=== PATIENT | female | born 1935 | race Caucasian/White ===

== ENCOUNTER → 2021-02-07 14:06 | Outpatient (CLI) | payer OTHER, MEDICAID, SELFPAY ==
--- NOTE | 2021-02-07 14:15 | DI.CT.S_ITS ---
PROCEDURE: CT LUMBAR SPINE WO CON INDICATIONS: Spinal stenosis, lumbar region with neurogenic claudication TECHNIQUE: Noncontrast 3 mm thick sections acquired from the T12 level to the sacrum. Sagittal and coronal reformats were constructed. For radiation dose reduction, the following was used: automated exposure control. COMPARISON: None. FINDINGS: Image quality: Excellent. Bones: There is normal bony alignment. No acute vertebral body compression fractures. No suspicious lytic or blastic bony lesions. No pars defects. Sclerotic degenerative endplate changes noted at L1-2. Dense atherosclerotic vascular calcification noted in the abdominal aorta without aneurysm. T12-L1: Disc space narrowing and circumferential disc bulge results in moderate central stenosis. Moderate right and mild left foraminal stenosis noted. L1-L2: Disc space narrowing, degenerative endplate changes and vacuum disc phenomena noted associated with circumferential disc bulge and hypertrophic facet joints. Moderate central stenosis with bilateral moderate foraminal stenosis, greater on the right. L2-L3: Mild disc space narrowing and circumferential disc bulge is present with hypertrophic facet joints resulting in moderate central stenosis mild bilateral foraminal stenosis noted. L3-L4: Mild disc space narrowing with large circumferential disc bulge, ligamentum flavum laxity and hypertrophic facet joints all contribute to severe central stenosis. Moderate right and severe left foraminal stenosis present. L4-L5: Severe disc space narrowing and circumferential disc bulge combines with hypertrophic facet joints and ligamentum flavum laxity to result in severe central stenosis. There is severe bilateral foraminal stenosis present as well. L5-S1: Moderate disc space narrowing, vacuum disc phenomena and circumferential disc bulge present with hypertrophic facet joints. Moderate central stenosis and severe bilateral foraminal stenosis noted. 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 on 02/07/2021 at 16:16
== END ==
PROVIDERS: PCP Family Medicine; Referring Provider Orthopaedic Surgery Orthopaedic Surgery of the Spine; Visit Provider Orthopaedic Surgery Orthopaedic Surgery of the Spine
DX: M48.062 Spinal stenosis, lumbar region with neurogenic claudication (principal); M48.07 Spinal stenosis, lumbosacral region; M51.36 Other intervertebral disc degeneration, lumbar region; M47.816 Spondylosis without myelopathy or radiculopathy, lumbar region; M47.817 Spondylosis without myelopathy or radiculopathy, lumbosacral region
CPT/HCPCS: 72131

== ENCOUNTER 2021-11-05 11:12 | Inpatient (IN) | payer OTHER, MEDICAID, SELFPAY ==
[2021-10-28 13:32] VITALS: BMI 21.3
[2021-11-04] VITALS (22 sets, daily range): BP systolic 120–177; BP diastolic 50–76; PULSE 69–99; RESP 12–18; TEMP 36.4–37.2; O2SAT 93–99; BMI 21.3
[2021-11-04] MEDS: LACTATED RINGERS 1,000 ML 42 ML IV ×2 (07:24→09:32)
[2021-11-04 07:30] LABS: COVID19 -Nasal RAPID Negative (Negative)
--- NOTE | 2021-11-04 07:48 | PM.PREOP ---
Pre-operative Note COVID-19 COVID-19 status: Negative Result date/Date tested (Pos, Neg/Pending): 11/04/21 Criteria for continued procedure: Expected advancement of disease process, Possibility delay results in more complex future surgery or treatment, Increased loss of function, Continuing or worsening of significant or severe pain, Deterioration of the patient's condition or overall health and Delay expected to result in less-positive ultimate med/surg outcome Interval Note History & Physical reviewed/Exam performed by Physician: Yes Changes to H&P: No
[2021-11-04] MEDS: CLINDAMYCIN 600 MG/50 ML PIGGYBACK 50 MG IV ×2 (08:30→16:36)
[2021-11-04] MEDS: ACETAMINOPHEN IV 1,000 MG/100 ML VIAL 400 MG IV (09:16)
[2021-11-04] MEDS: BUPIVACAINE LIPOSOME 266 MG/20 ML VIAL INJ (09:31)
[2021-11-04] MEDS: BUPIVACAINE 0.5% (PF) 30 ML, EPINEPHrine 0.15 MG INJ (09:31)
--- NOTE | 2021-11-04 09:44 | SUR.OPER ---
Prone on spine table, head in foam head support, padded chest and pelvic supports, gel pad at knees, lower legs supported by pillows; nipples, genitalia and toes free of pressure, arms secured on foam padded arm boards at <90 degrees abduction. Tape over blanket at thigh secured to table. Directed and approved by surgical attending Carine, neck alignment approved by Anesthsia attending Junie
--- NOTE | 2021-11-04 12:23 | DI.RAD.S_ITS ---
PROCEDURE: XR LUMBAR SPINE 2-3V INDICATIONS: L3-4, L4-5 TLIF TECHNIQUE: 2 spot fluoroscopic intraoperative images of the lumbar spine. COMPARISON: [facility], CR, XR LUMBAR SPINE 2 OR 3 VIEWS, 12/26/2020, 14:44. FINDINGS: Intraoperative images demonstrate posterior fixation with hardware extending from L3 through L5 with interbody rods and pedicle screws as well as disc spacers. Aortic atherosclerotic calcifications are present. IMPRESSION: Status post posterior fusion from L3 through L5. Dictated by: Avinash Morin M.D. on 11/04/2021 at 12:59 Approved by: Avinash Morin M.D. on 11/04/2021 at 13:01
--- NOTE | 2021-11-04 12:24 | P.OP_ITS ---
Operative Date/Time/Diagnoses Date of procedure: 11/04/21 Time of procedure: 07:45 Pre-op diagnosis: 1. Lumbar scoliosis 2. Lumbar spinal stenosis with neurogenic claudication Post-op diagnosis: same Procedure & Clinicians Procedure: 1. L3-4, L4-5 Postero-lateral and posterior interbody fusion 2. L3-4, L4-5 interbody cage placement. 3. L3-4, L4-5 decompressive laminectomy with bilateral facetecomies 4. L3-4, L4-5 Posterior segmental instrumentation 5. Broadway of bone marrow from iliac crest 6. Utilization of microsurgical technique and operating microscope 7. Utilization of robotic assisted navigation Same procedure as scheduled: Yes Indications: Patient has been having chronic back pain and worsening lumbar radiculopathy and symptoms of neurogenic claudication. Patient failed multiple conservative management with worsening pain weakness and numbness in her lower extremity. Patient has been having difficulty performing activity of daily living. After discussing risks benefits of treatment options, patient elected proceed with surgery. Surgeon: Shiela Hawk Coding Advisor: Mary White Click Yes if Unassisted: No Anesthesia Type: General Operative Notes Closure Type: primary Specimen(s): none sent Prosthetic devices, grafts, tissues, transplants, or devices: Globus CREO MIS screws, Rise cages Applied: catheter Estimated Blood Loss (mL): 75 Blood products transfused: none Procedure in detail: Patient was seen in the preoperative area. Risks and benefits of the surgery was discussed with the patient. Informed consent was obtained from the patient and placed in the chart. Surgical site was marked. Patient was taken to the operative room. General anesthesia was administered. Prophylactic antibiotic was given to the patient less than 30 min before the incision was made. Patient was placed into a prone position on the Joaquín table. Patient's back was then prepped and draped in the sterile fashion. Time-out was performed at this time. After patient was prepped and draped, patient's PSIS was palpated and marked bilaterally. Small 1 cm incision was made over the PSIS for placement of the reference probes. Two trocar was placed into the PSIS 1 on each side. The reference probe was attached to the trocar of the reference apparatus. At this time the C-arm imaging was used to confirm AP and lateral of L3, L4-L5 vertebrae and merged the C-arm imaging using the [email or web address] robotic navigation system with the CT of the lumbar spine. After successful merging was completed and confirmed, skin marker was used to sam out the skin incision using the CHARGED.fm robotic arm. Bilateral incision was made at this time. Pre templated trajectory was used and guided using the CHARGED[employer]fm robotic navigation system for bilateral L3 L4, L5 pedicle screw placement. This was done by using the robotic arm to guide the high-speed bur to make a cortical entry point. Next a drill was placed also using the robotic arm and guided using the navigation system drilling partially through bilateral L3, L4, L5 pedicles. Next L3, L4, L5 pedicle screws it was pre templated and measured was placed onto the power shuttle bus driver and inserted into the pedicles bilaterally. After all 6 screws were placed C-arm imaging was taken of both AP and lateral to confirm the placement. Excellent placement of the screws were confirmed and a matched precisely with the pre planned screw placement using the navigation system. MARs retractor was inserted using [employer] guidence. Globus MARS retractors was placed inside the incision and docked onto the L3, L4 lamina. Using microsurgical technique and operating microscope, a L3, L4 laminectomy and L3-4, L4-5 facetectomy was performed using a Kerrison rongeur. Patient was found have severe lateral recess and neural foramen stenosis which was fully decompressed after the laminectomy facetectomy. More than 75% of the facets were removed during the process of decompression rendering L3-4, L4-5 level grossly unstable and required a fusion procedure at the same time. The disc space at L3-4, L4-5 was identified, and a total diskectomy was performed at L3- 4, L4-5 level. The endplates were decorticated using a rasp and shaver. The total diskectomy and decortication was performed at L3-4, L4-5 level in order to to accomplish a L3-4, L4-5 fusion. The local bone from the laminectomy and facetectomy was saved for local bone grafting. After the total diskectomy and decortication was completed, Trifecta bone graft material was combined with local bone that was harvested earlier. During the process of laminectomy, there was a small pinhole sized dural defect that was encountered. DuraGen and Tisseel was used to patch the dural defect after the cage was placed at the L3-4 level. There was no CSF leakage. At this time, a separate skin is incision was made over the iliac crest. A Jamshidi needle was inserted into the iliac crest through a separate skin incision. 5 cc of bone marrow aspiration was obtained through the separate skin incision using a Jamshidi needle from the iliac crest. The bone marrow aspiration was combined with local bone and the Trifecta bone grafting material. The bone grafting material was placed into the L3-4, L4-5 interbody space along with expandable cages. One cage each was inserted into the L3-4 L4-5 interbody space along with bone graft material. The cage was expanded to its maximum height using the torque limiting screwdriver. The disc preparation as well as the cage insertion were also performed under navigation guidance. After the cage was placed, AP and lateral C-arm imaging was taken to confirm placement of the cage and excellent position was confirmed. Globus MARS retractor was inserted and docked onto the L3-4, L4-5 posterolateral gutter on the right side. Using the power drill, posterior-lateral decortication was performed at L3-4, L4-5 level until bleeding cortical bone was identified. The remaining bone grafting material was placed into the L3-4, L4-5 posterior lateral gutter he order to accomplish posterolateral fusion at the L3- 4, L4-5 level. At this time the tulips were attached to the L3, L4-L5 pedicle screw shanks. After measuring the length of the rods, they were inserted into the tulips of the pedicle screws and locked in place using locking caps and torque limiting screwdriver bilaterally. Total 6 caps and 2 titanium rods was used in order to complete the posterior instrumentation construct. After all the hardware was placed, and confirmed with AP and lateral C-arm imaging, the wound was then irrigated with sterile normal saline and packed with Ray-Janusz gauze for 3 min to accomplish hemostasis. After the gauze was removed the deep fascia was closed with #1 Vicryl suture. The subcutaneous layer was closed with 2-0 Vicryl. The skin was closed with skin verona. Patient tolerated the procedure well. There were no complications. Neuro monitoring system was used to monitor patient's neurologic status throughout entire procedure. There was no disturbance of the neural monitoring signals throughout the case. Complications: none Post-operative Condition: stable Disposition: PACU Plan for aftercare: Admit to inpatient hospital
[2021-11-04] MEDS: HYDROMORPHONE 2 MG INJ IV ×2 (13:28→13:42)
[2021-11-04] MEDS: OXYCODONE IR 5 MG TABLET PO ×2 (13:38→16:36)
[2021-11-04] MEDS: HYDROMORPHONE 0.5 MG INJ 0.2 MG IV ×2 (15:33→20:52)
[2021-11-04] MEDS: SODIUM CHLORIDE 0.9% 1,000 ML 100 ML IV (15:35)
[2021-11-04] MEDS: glipiZIDE 5 MG TABLET 10 MG PO (20:57)
[2021-11-04] MEDS: SENNOSIDES 8.6 MG TABLET 17.2 MG PO (20:58)
[2021-11-04] MEDS: ATORVASTATIN 20 MG TABLET 80 MG PO (20:58)
[2021-11-04] MEDS: DOCUSATE 100 MG CAPSULE PO (20:58)
[2021-11-04] MEDS: TRAMADOL 50 MG TABLET PO (21:34)
[2021-11-04] MEDS: ACETAMINOPHEN 325 MG TABLET 650 MG PO (22:27)
[2021-11-04] MEDS: hydrOXYzine pamoate 25 MG CAPSULE PO (22:28)
[2021-11-05 00:11] VITALS: BP 123/90; PULSE 76; RESP 18; TEMP 36.1; O2SAT 95
[2021-11-05] MEDS: SODIUM CHLORIDE 0.9% 1,000 ML 100 ML IV (00:12)
[2021-11-05] MEDS: OXYCODONE IR 5 MG TABLET PO ×5 (02:55→21:38)
[2021-11-05] MEDS: CLINDAMYCIN 600 MG/50 ML PIGGYBACK 50 MG IV (03:42)
[2021-11-05 04:02] VITALS: BP 148/47; PULSE 70; RESP 18; TEMP 36.2; O2SAT 96
[2021-11-05] MEDS: PANTOPRAZOLE DR 20 MG TABLET PO (06:00)
[2021-11-05] MEDS: LEVOTHYROXINE 25 MCG TABLET PO (06:00)
--- NOTE | 2021-11-05 06:32 | PC.NURSE ---
End of shift note. Care of patient [id number]. AAOX4, pleasant, talkative. Uses call light for assist, compliant with laying flat, CMS intact. Improved pain control with Tramodol and oxycodone. Tolerating drinking water and sprite. O2 Sats 95% on RA. Lower back dressing CDI. ABD distended, patient states she has had a distended abd before this admission, bowel meds given. LBM Bladder urinary catheter draining adequate clear yellow urine.
--- NOTE | 2021-11-05 08:09 | P.PN_ITS ---
Subjective Subjective Date Patient Seen: 11/05/21 Time Patient Seen: 07:40 Interval history: Patient is complaining of moderate to severe pain this morning. She is having some dizziness. There was 1 episode of blurred vision this morning when she was reading, this has since resolved. She denies any headaches. She was unable to work with physical therapy yesterday due to small dural tear. She is planning on being discharged to SNF when cleared. Exam Vital Signs (past 8 hours): - 11/05/21 00:11 11/05/21 04:02 Temperature 97.0 F L 97.1 F L Pulse Rate 76 70 Respiratory Rate 18 18 Blood Pressure 123/90 148/47 H Pulse Oximetry 95 96 Oxygen Delivery Method Room Air Oxygen Flow Rate 92 Narrative Exam Narrative: Pleasant 86-year-old female, resting comfortably in bed, no acute distress. Dressing demonstrates a scant area of serosanguineous drainage, no surrounding erythema or induration. Bilateral lower extremity: Motor functions are grossly intact, calves are soft and nontender palpation. She has decreased sensation bilaterally, patient notes this is baseline due to peripheral neuropathy. [facility] Medical History Anxiety Aortic valve regurgitation Breast cancer (1995) CAD (coronary artery disease) Carotid artery disease CKD (chronic kidney disease) COPD (chronic obstructive pulmonary disease) Diabetes Diverticular disease HLD (hyperlipidemia) HTN (hypertension) Osteoarthritis Osteoarthropathy Surgical History History of hysterectomy History of surgery Hx of bilateral cataract extraction Hx of breast surgery (1995) Hx of elbow surgery Hx of lumpectomy Hx of repair of right rotator cuff Hx of tonsillectomy Social History household members: none Smoking Status: Never smoker alcohol intake: never Assessment & Plan Post-op Postoperative Procedures: Procedures Operation Date: 11/04/21 07:45 Actual Procedure Side Surgeon p L3-4, L4-5 TLIF w. posterior instrumentation-Robot Shiela Hawk MD Postoperative day: 1 Postoperative status narrative: Stable status post L3-4, L4-5 TLIF with a small dural tear Postoperative plan narrative: -okay to start setting patient up, standing, walking; PT as tolerated, depending on any headache or dizziness or lighth eadedness -limit bending, lifting, twisting -continue with current multi-modal pain management. Will add Oxy 10 for severe pain -consult Hospitalist for diabetes management, COPD, etc -DC to SNF likely in 1-2 days, when cleared by Physical therapy
[2021-11-05 08:10] VITALS: BP 144/44; PULSE 79; RESP 18; TEMP 36.5; O2SAT 99
--- NOTE | 2021-11-05 09:22 | CM.DANOTE ---
Addendum entered by Ellie Workman R.N. 11/05/21 11:02: Spoke to Nathaly at [facility], she is going to review. She does have beds available. Let her know that patient is [employer], and P.T. is pending. Original Note: DCP: Case received, EMR reviewed and met with patient. Introduced self and role. Was able to obtain information regarding patient's baseline activity status prior to surgery. DCP assessment completed with information currently available. Patient is an 86 year old female who admitted yesterday to the care of the orthopedic team. PCP: Dr. Garnica. Payer: confirmed: [employer] Medicare Advantage/Medicaid [facility] Program. Patient came to the hospital via private vehicle secondary to having a surgical procedure. Patient had L3-4, L4-5 postero-lateral and posterior interbody fusion. Patient has history of spinal stenosis, chronic back pain. Met with patient in her room. She is alert and oriented, having some pain. Confirmed that patient resides alone in [facility] in an apartment, and does not drive or use any DME supplies. Patient indicated, she has a [id number], Germaine Hernandez, is in [place], and her friend, Neftaly and Luz can't help her at home. She has no one to assist her when she goes home. Patient did not seem to plan ahead regarding post-surgery. Let her know that since skilled rehab may be recommended, two facilities take her [employer] in [place], [facility] and [facility]. She heard not great things about [facility]. Let her know that referrals will be sent to both places, as it's unknown of bed availability. Halley is faxing both facilities, and P.T. will need to work with her for they will need notes. P: DCP to continue to follow, and will work on getting patient into nursing home. This will also depend upon how she does with P.T. Ellie Workman RN/Radio/Tv Technician Discharge Planning/Care Management Advanced directive, confirm from FAMILY Start: 11/04/21 15:10 Freq: Q24H Status: Active Protocol: Document 11/04/21 15:27 [facility] (Rec: 11/04/21 15:28 W [id number]) Advance Directive, confirm on record Time 15:28 Person contacted . Copy received No CM Discharge Assessment Start: 11/05/21 09:20 Freq: Status: Active Protocol: Document 11/05/21 09:20 (Rec: 11/05/21 09:22 [id number]) Discharge Planning Assessment Assigned Success Coach Ellie Workman RN/Radio/Tv Technician Advance Directives? Yes Advance Directives on File No History Provided By Patient,Medical Record Prior Living Arrangements Penitentiary Facility Household Members none Type of transporation used prior to Relies on Others admit Independent with ADL's Yes Is patient alert and oriented? Yes Needs Assistance With Home Chores / Shopping Caregiver for Another No Patient/Family Preference Correction Facility Barriers to Discharge Yes Comment Patient lives alone, is 86, has no one to help her at home . Discharge Plan Correction Facility Transportation Arrangement Facility Referrals Initiated Correction Additional Comment Two facilities take [employer], [facility], patient does not want [facility]. Whiteboard Updated in Patient Room with Yes name and ext. # of Success Coach Review Status In Process Next Review Type Continued Stay Review Pre-Anesthesia Assessment Start: 10/28/21 13:31 Freq: Status: Complete Protocol: Document 10/28/21 13:32 [facility] (Rec: 10/28/21 14:41 CAB [id number]) Pre-Anesthesia Assessment Preferred Name Jose Patient Information Reviewed Via Phone Assessment Assessment Completed With Patient Comment Outside labs/ECG done, COVID screen @ PCP 11/01/20 Primary Care Provider Donna Garnica Seen Specialist in Last 12 Months Yes Specialist Seen Dining Room Server,Kaiako Kohanga Reo, Orthopedist Comment Nephrology visit to surgery folder for dos Primary Language Portuguese Swimming Coach Required No Height 5 ft 6 in Weight 132 lb Body Mass Index (BMI) 21.3 Hearing Ability Normal Visual Assist Glasses Dentition Type Teeth, Natural Present Barriers to Learning None Hx Anesthesia Reactions No Hx Family Anesthesia Reaction No Hx Malignant Hyperthermia No Hx Blood Transfusions Yes: r/t anemia 4-5 years ago Hx Blood Transfusion Reaction No Anesthesia Review Requested Yes: PAC courtesy re: Comorbidities alcohol intake never Smoking Status Never smoker Substance Use Type does not use Pain Present Pain Reported Musculoskeletal Symptoms Abnormal Gait,Back Pain, Difficulty Walking History of Falling (Recent or History of No ) Patient is completely paralyzed or No completely immobile Mental Status Oriented to own ability Is patient on oxygen? No Does patient have ALAS/SOB No Hx Sleep Apnea No Currently Taking a Beta Rosie No Hx Chest Pain No Hx SOB No Hx Syncope or Dizziness No Anti-Coagulant Therapy No Has a Dining Room Server Yes: Dr. Austin-last visit Cardiac Testing Yes: Echo @ [facility] 07/09/21 Cardiac Clearance Received Yes Comment Cardiac records to surgery folder for dos Diet Type At Home Diabetic dysphagia No Gastrointestinal Symptoms Constipation Bladder Pattern Incontinent Urinary Catheter Present No Hx Urinary Self Catheterization No Diabetes Yes HgbA1C 7.2 Date 10/08/21 Patient No Lactating No Hx Drug Resistant Organism No Presence of External or Internal Medical Yes: Bilat IOLs Devices Have you had any close contact with Yes: Pt had Covid 07/14/21 someone diagnosed with COVID-19? Are you experiencing any of these No symptoms symptoms? Received a COVID vaccine? Yes Received all doses? Yes Marital Status Lives With none Prior Living Arrangements Penitentiary Facility Number of Floors (Floors) One Floor Does the Patient Have Assistance After No: Trying to figure out who Surgery will assist-children not available Patient Discharge Plan Description Return Home Comment Pt advised 3 day length of stay per surgeon Feels Safe in Current Environment Yes Been Physically Hurt or Threatened By a No Person in Current Environment Do you have thoughts of harming yourself None or others? Are you currently considering suicide? No Do you have a plan to hurt yourself or No Plan others? Do You Have Any Spiritual Beliefs That No May Affect Your HC Choices? Do You Have Any Cultural Practices That No May Affect Your HC Choices? Comment Christian Who Can We Speak to About Patient's Care Family, friends Identifying Code for Release of Patient Declines to issue Information Health Care Proxy/Next of Kin Germaine (ex-daughter in-law) Health Care Proxy Emergency Contact Name Rashel (brother) Emergency Contact Advance Directives? No Power of Railroad Car Repairman Yes Power of Railroad Car Repairman Name Germaine (ex-daughter in-law) Power of Railroad Car Repairman PAC Instructions Diabetes instructions,Durable medical equipment,Medications to take/avoid,Nasal antibiotic ,No ETOH/petroleum product on skin DOS,NPO,Pre-surgical wash ,Sensory aids,Sturdy shoes/ comfortable clothes,Do not bring valuables and remove jewelry
[2021-11-05] MEDS: glipiZIDE 5 MG TABLET 10 MG PO ×2 (09:31→20:10)
[2021-11-05] MEDS: lisinopriL 10 MG TABLET PO (09:31)
[2021-11-05] MEDS: FOLIC ACID 1 MG TABLET 0.5 MG PO (09:31)
[2021-11-05] MEDS: DOCUSATE 100 MG CAPSULE PO ×2 (09:31→20:10)
[2021-11-05] MEDS: CHOLECALCIFEROL (VITAMIN D3) 1,000 UNIT TABLET 2000 UNIT PO (09:32)
[2021-11-05] MEDS: FENOFIBRATE, MICRONIZED 67 MG CAPSULE PO (09:37)
--- NOTE | 2021-11-05 09:57 | OT.IPNOTE ---
Pt complaining of being dizzy and having blurred vision, per nurse best to hold pt for OT eval this morning and to check on the pt in the PM.
--- NOTE | 2021-11-05 10:08 | CM.DPNOTE ---
Emailed referral per Ashley to [facility]. [facility] Ross CM Assist.
[2021-11-05] MEDS: ACETAMINOPHEN 325 MG TABLET 650 MG PO ×2 (10:22→18:33)
--- NOTE | 2021-11-05 11:53 | PT-IP ANOTE ---
Held PT in AM due to reports of dizziness and blurred vision. Nsng notified of PT hold. Reassess in PM.
[2021-11-05] MEDS: OXYCODONE IR 5 MG TABLET 10 MG PO (13:57)
[2021-11-05 14:00] VITALS: BP 114/47; PULSE 80; RESP 18; TEMP 36.4; O2SAT 97
--- NOTE | 2021-11-05 14:20 | OT.IPNOTE ---
Pt states not wanting get out of the bed today as not feeling well and her vision was blurry earlier. Pt states to get out of bed tomorrow. Check of pt for OT eval tomorrow.
--- NOTE | 2021-11-05 14:20 | PT-IP ANOTE ---
Hold PT in PM due to acute vision changes/dizziness following spinal surgery/dural tear. Hospitalist referral has been placed. Pt also requesting hold on PT due to symptoms.
--- NOTE | 2021-11-05 15:18 | P.CONS_ITS ---
History of Present Illness Consult details Chief complaint: TLIF *OPB* Narrative: THIS IS A VERY PLEASANT 86-YEAR-OLD FEMALE WHO UNDERWENT A L3-L4, L4-L5 TLIF WHEAT POSTERIOR INSTRUMENTATION PER OP REPORT FROM SURGICAL TEAM. PATIENT HAS BEEN IN THE HOSPITAL POSTOPERATIVELY AND DOING FAIRLY WELL WITHOUT ANY SIGN OF GROSS COMPLICATIONS HOWEVER HER BLOOD SUGAR HAS BEEN NOTED TO BE INCREASINGLY ELEVATED OVER THE LAST COUPLE OF DAYS. THERE WAS ALSO REPORT OF POSSIBLE BLURRY VISION REPORTED BY PATIENT THIS MORNING IN ANY CASE, MILD INCREASE IN BLOOD SUGAR NOTED WITH BLOOD SUGAR THIS AFTERNOON SLIGHTLY ABOVE 200. PATIENT IS ON GLYBURIDE AT HOME. PATIENT HOWEVER DENIED BLURRY VISION. SHE REPORTED DIFFICULTY READING THIS MORNING JUST RIGHT AFTER WAKING UP. SINCE THEN NO RECURRENT SYMPTOMS. SHE DENIES ANY INCREASING SHORTNESS OF BREATH. NO CHEST PAIN. NO FEVER OR CHILLS. NO HEAT OR COLD INTOLERANCE. SHE ALSO DENIES ANY POLYURIA. NO POLYDIPSIA. NO OTHER SIGNIFICANT ISSUES REPORTED BY NURSING OVERNIGHT Meds Home Medications and Allergies Home Medications Medication Instructions Recorded Confirmed Type cyclosporine 0.05 % eye drops in a 1 drp OPHTHALMIC (EYE) BID 10/29/21 11/04/21 History dropperette (Restasis) fenofibrate micronized 67 mg 67 mg PO DAILY 10/29/21 11/04/21 History capsule glipizide 10 mg tablet 10 mg PO BID 10/29/21 11/04/21 History levothyroxine 25 mcg tablet 25 mcg PO DAILY 10/29/21 11/04/21 History linagliptin 5 mg tablet (Tradjenta) 5 mg PO QAM 10/29/21 11/04/21 History lisinopril 10 mg tablet 10 mg PO DAILY 10/29/21 11/04/21 History omeprazole 20 mg capsule,delayed 20 mg PO DAILY 10/29/21 11/04/21 History release rosuvastatin 40 mg tablet 40 mg PO BEDTIME 10/29/21 11/04/21 History tramadol 50 mg tablet 50 mg PO BID 10/29/21 11/04/21 History acetaminophen 325 mg tablet 650 mg PO Q6H PRN 11/04/21 11/04/21 History aspirin 325 mg tablet 325 mg PO DAILY 11/04/21 11/04/21 History cholecalciferol (vitamin D3) 50 50 mcg PO DAILY 11/04/21 11/04/21 History mcg (2,000 unit) capsule (Vitamin D3) fluticasone furoate 27.5 2 spray INTRANASAL DAILY 11/04/21 11/04/21 History mcg/actuation nasal spray,suspension folic acid 0.8 mg capsule 0.5 mg PO DAILY 11/04/21 11/04/21 History Allergies Allergy/AdvReac Type Severity Reaction Status Date / Time latex Allergy Severe ITCHING Verified 11/04/21 07:15 Penicillins Allergy Severe Anaphylaxis Verified 11/04/21 07:15 clarithromycin AdvReac Severe Mouth sores Verified 11/04/21 07:15 codeine AdvReac Severe Palpitation Verified 11/04/21 07:15 s Review of Systems Review of Systems Narrative: ALL SYSTEM REVIEWED. NEGATIVE UNLESS NOTED ABOVE Exam Vital Signs (past 8 hours): - 11/05/21 08:10 11/05/21 14:00 Temperature 97.7 F 97.6 F Pulse Rate 79 80 Respiratory Rate 18 18 Blood Pressure 144/44 H 114/47 L Pulse Oximetry 99 97 Oxygen Delivery Method Room Air Oxygen Flow Rate 92 Narrative Exam Narrative: NO ACUTE DISTRESS. PATIENT IS ALERT ORIENTED X3. VITAL SIGNS STABLE HEAD ATRAUMATIC AND NORMOCEPHALIC NECK : SUPPLE WITHOUT ADENOPATHY NO CAROTID BRUITS. NO JVD EYE: EOMI, PERRLA, NORMAL CONJUNCTIVA; NO JAUNDICE CHEST: REGULAR RATE. NO RUBS. PMI IS NON DISPLACED. NORMAL S1-S2 PULMONARY: DECREASED BS OVER THE BASES. MILD BIBASILAR CRACKLES NOTED; NO INCREASED DULLNESS TO PERCUSSION ABDOMEN: SOFT. NONTENDER. NONDISTENDED. BOWEL SOUNDS ARE PRESENT IN ALL 4 QUADRANTS. NO MASS. EXTREMITIES: TRACE BILATERAL LOWER EXTREMITY EDEMA.. NO CYANOSIS CLUBBING NOTED. NEURO: CRANIAL NERVES 2-12 GROSSLY INTACT. NO FOCAL NEUROLOGICAL DEFICIT NOTED. MSK: CLOSE SURGICAL INCISION ALONG THE LOWER BACK. NO SIGNIFICANT DRAINAGE. MILD REDNESS APPRECIATED. MILD PARASPINAL TENDERNESS WITH PALPATION OF THE LOWER BACK SKIN: NORMAL FOR ETHNICITY; NO ECCHYMOSIS. NO LESION. GOOD TURGOR.; NO RASHES : NORMAL EXTERNAL GENITALIA. PSYCH : APPROPRIATE MOOD AND AFFECT. ALERT AWAKE ORIENTED X3 [facility] Medical History (Updated 10/29/21 @ 14:26 by Maya Brothers RN) Anxiety Aortic valve regurgitation Breast cancer (1995) CAD (coronary artery disease) Carotid artery disease CKD (chronic kidney disease) COPD (chronic obstructive pulmonary disease) Diabetes Diverticular disease HLD (hyperlipidemia) HTN (hypertension) Osteoarthritis Osteoarthropathy Surgical History History of hysterectomy History of surgery Hx of bilateral cataract extraction Hx of breast surgery (1995) Hx of elbow surgery Hx of lumpectomy Hx of repair of right rotator cuff Hx of tonsillectomy Social History household members: none Tobacco & Substance Use Smoking Status: Never smoker alcohol intake: never Assessment & Plan Assessment & Plan narrative: TYPE 2 DIABETES. NON-INSULIN DEPENDENT STATUS POST L3-L4, L4-L5 TLIF POSTERIOR INSTRUMENTATION. ORTHOPEDIC SURGERY ON BOARD CAD PER HISTORY HYPERTENSION PER HISTORY HYPERLIPIDEMIA PER HISTORY POSSIBLE CHRONIC KIDNEY DISEASE PER HISTORY COPD PER HISTORY PLAN WILL CHECK LABS IN THE MORNING THIS WILL INCLUDE A CMP, CBC, MAGNESIUM OR PHOSPHORUS LEVEL WILL ALSO ADD A HEMOGLOBIN A1C START ON INSULIN SLIDING SCALES DIABETIC DIET RECOMMENDED MONITOR CLOSELY FOR ANY SIGN OF ACUTE COMPLICATIONS POSTOPERATIVELY 5W'S IN REGARD TO THE REPORTED BLURRY VISION NO WORKUP IS INDICATED AT THIS TIME PATIENT DENIED HAVING ANY SIGNIFICANT ISSUES WITH HER VISION THIS MORNING WILL CONSIDER CT OR MRI IF INDICATED CLINICALLY CONTINUE TO MOBILIZE PATIENT WELL TOLERATED WHILE MAINTAINING STRICT FALL PRECAUTIONS AND FOLLOWING SURGERY TEAM RECOMMENDATIONS IN REGARD TO WEIGHT- BEARING/RESTRICTION WE GREATLY APPRECIATE THIS KIND CONSULT AND WILL GLADLY FOLLOW WITH YOU Time Spent With Patient Critical Care time: I spent a total of [] minutes of critical care time on this patient's care today; this time is exclusive of procedural time.
[2021-11-05 18:26] LABS: Hematocrit 28.6 % (36-46); Hemoglobin 9.5 g/dL (12.0-16.0)
[2021-11-05] MEDS: INSULIN LISPRO 100 UNIT/ML 3ML VIAL SUBCUT ×2 (18:35→20:26)
[2021-11-05 19:45] VITALS: BP 131/63; PULSE 81; RESP 18; TEMP 37; O2SAT 98
[2021-11-05] MEDS: hydrOXYzine pamoate 25 MG CAPSULE PO (20:07)
[2021-11-05] MEDS: HYDROMORPHONE 0.5 MG INJ 0.2 MG IV ×2 (20:08→22:38)
[2021-11-05] MEDS: ATORVASTATIN 20 MG TABLET 80 MG PO (20:10)
[2021-11-05] MEDS: SENNOSIDES 8.6 MG TABLET 17.2 MG PO (20:11)
[2021-11-06 00:10] VITALS: BP 145/59; PULSE 86; RESP 18; TEMP 36.9; O2SAT 96
[2021-11-06] MEDS: OXYCODONE IR 5 MG TABLET PO ×2 (00:34→05:23)
[2021-11-06] MEDS: hydrOXYzine pamoate 25 MG CAPSULE PO ×2 (00:35→05:22)
[2021-11-06 04:00] VITALS: BP 143/58; PULSE 87; RESP 18; TEMP 37.1; O2SAT 94
[2021-11-06] MEDS: PANTOPRAZOLE DR 20 MG TABLET PO (05:22)
[2021-11-06] MEDS: LEVOTHYROXINE 25 MCG TABLET PO (05:23)
[2021-11-06 07:50] VITALS: BP 136/60; PULSE 85; RESP 24; TEMP 36.7; O2SAT 95
--- NOTE | 2021-11-06 08:09 | P.PN_ITS ---
Subjective Subjective Date Patient Seen: 11/06/21 Time Patient Seen: 08:09 Interval history: Pt sitting up in bed at about 75 degrees. Says 'I feel terrible' but is unable to specify exactly how she is feeling. Complains of pain 'from my knees up' that is new since surgery. Did not work with PT yesterday due to dizziness and blurred vision. Denies any dizziness or visual changes today. Wei catheter remains in place, and pt would like it to remain as she is incontinent of urine at baseline, getting up 'fifty' times a day to urinate. She lives alone and has no help and the plan is for her to discharge to SNF. Exam Vital Signs (past 8 hours): - 11/06/21 00:10 11/06/21 04:00 Temperature 98.4 F 98.8 F Pulse Rate 86 87 Respiratory Rate 18 18 Blood Pressure 145/59 H 143/58 H Pulse Oximetry 96 94 Oxygen Delivery Method Room Air Oxygen Flow Rate 0 Narrative Exam Narrative: Movement intact at hip flexors, quadriceps, hamstrings, DF, PF, EHL, but very little effort due to pain. Low back dressing placed intraoperatively is CDI. She is currently receiving APAP, hydroxyzine, hydromorphone, tramadol, and oxyc odone for pain. Objective Labs Result Diagrams: 11/05/21 18:20 Labs: Laboratory Results - last 24 hr 11/05/21 18:20 Hgb 9.5 L Hct 28.6 L PFSH Medical History (Updated 11/06/21 @ 08:18 by Mary White PA-C) Anxiety Aortic valve regurgitation Breast cancer (1995) CAD (coronary artery disease) Carotid artery disease CKD (chronic kidney disease) COPD (chronic obstructive pulmonary disease) Diabetes Diverticular disease HLD (hyperlipidemia) HTN (hypertension) Osteoarthritis Osteoarthropathy Urinary incontinence in female Surgical History (Updated 11/06/21 @ 08:16 by Mary White PA-C) History of hysterectomy History of surgery Hx of bilateral cataract extraction Hx of breast surgery (1995) Hx of elbow surgery Hx of lumpectomy Hx of repair of right rotator cuff Hx of tonsillectomy Social History household members: none Smoking Status: Never smoker alcohol intake: never Assessment & Plan Post-op Assessment and plan (1) Status post lumbar spinal fusion: Assessment and Plan narrative: Slow progress with ambulation. PT today. Pt will need SNF placement; plan for discharge to SNF tomorrow or Thursday pending CM arrangements. (2) Dural tear: Assessment and Plan narrative: This was repaired intraoperatively, and the patient does not appear to have any signs or symptoms of CSF leak. (3) Urinary incontinence in female: Assessment and Plan narrative: Continue wei catheter. Recommend d/c or change on POD# 7. (4) Acute postoperative anemia due to expected blood loss: Assessment and Plan narrative: Pt has been normotensive to slightly hypertensive. Will continue IVF until she is feeling better and PO improves. (5) Diabetes: Assessment and Plan narrative: Appreciate hospitalist input and help with this patient. Postoperative Procedures: Procedures Operation Date: 11/04/21 07:45 Actual Procedure Side Surgeon p L3-4, L4-5 TLIF w. posterior instrumentation-Robot Shiela Hawk MD Postoperative day: 2
[2021-11-06] MEDS: ACETAMINOPHEN 325 MG TABLET 650 MG PO (08:21)
[2021-11-06] MEDS: TRAMADOL 50 MG TABLET PO (08:21)
[2021-11-06] MEDS: lisinopriL 10 MG TABLET PO (08:22)
[2021-11-06] MEDS: CHOLECALCIFEROL (VITAMIN D3) 1,000 UNIT TABLET 2000 UNIT PO (08:22)
[2021-11-06] MEDS: FOLIC ACID 1 MG TABLET 0.5 MG PO (08:22)
[2021-11-06] MEDS: glipiZIDE 5 MG TABLET 10 MG PO ×2 (08:22→20:05)
[2021-11-06] MEDS: DOCUSATE 100 MG CAPSULE PO ×2 (08:22→20:05)
[2021-11-06] MEDS: INSULIN LISPRO 100 UNIT/ML 3ML VIAL SUBCUT ×4 (08:27→20:57)
[2021-11-06] MEDS: FENOFIBRATE, MICRONIZED 67 MG CAPSULE PO (08:37)
--- NOTE | 2021-11-06 11:16 | PT.IIE ---
Current Diagnoses Acute posthemorrhagic anemia (11/05/21) Type 2 diabetes mellitus without complications (11/05/21) Dural tear (11/05/21) Other secondary scoliosis, lumbar region (11/05/21) Spinal stenosis, lumbar region with neurogenic claudication (11/05/21) Unspecified urinary incontinence (11/05/21) Arthrodesis status (11/05/21) Surgery Performed Operation Date: 11/04/21 07:45 Actual Procedures p L3-4, L4-5 TLIF w. posterior instrumentation-Robot - Shiela Hawk MD Medical History (Last Updated 11/06/21 @ 08:18 by Mary White PA-C) Anxiety Aortic valve regurgitation Breast cancer (1995) CAD (coronary artery disease) Carotid artery disease CKD (chronic kidney disease) COPD (chronic obstructive pulmonary disease) Diabetes Diverticular disease HLD (hyperlipidemia) HTN (hypertension) Osteoarthritis Osteoarthropathy Urinary incontinence in female Physical Therapy Inpatient Evaluation/Re-Eval M1 PT/OT-IP Prior Functional Status Start: 11/06/21 13:41 Freq: NEEDED Status: Active Protocol: Document 11/06/21 11:16 AB (Rec: 11/06/21 13:57 AB [id number]) Medical Review Prior Functional Status Medical History Reviewed Yes Communication able to make needs known Mobility and Gait pt stated that she is modified independent with all mobilities and ambulation without AD Social History Household Members none Living Arrangements [facility] Facility Number of Floors (Floors) One Floor Number of Stairs To Enter/Railing? pt lives at [facility] no steps to enter Home Environment Standard Height Toilet,Tub/ Shower Home Equipment Four Wheel Walker,Hand Held Shower,Grab Bars Near Toilet, Grab Bars In Shower M2 PT-IP Current Condition Start: 11/06/21 13:41 Freq: NEEDED Status: Active Protocol: Document 11/06/21 11:16 AB (Rec: 11/06/21 13:57 AB [id number]) Physical Therapy Current Condition Current Condition Evaluation Date 11/06/21 Treatment Diagnosis s/p L3-4, L4-5 TLIF; difficulties in walking Onset Date 11/04/21 M3 PT-IP Subjective Start: 11/06/21 13:41 Freq: NEEDED Status: Active Protocol: Document 11/06/21 11:16 AB (Rec: 11/06/21 13:57 AB [email or web address]) Subjective Physical Therapy Visit Type Type Initial Evaluation Visit Start Time 11:16 Visit Stop Time 12:00 Total Visit Minutes 44 Number of INVESTIGATOR WELFARE Visits 0 Physical Therapy Visit Comments Patient Comments agreeable to do PT M4 PT-IP Mobility and Gait Start: 11/06/21 13:41 Freq: NEEDED Status: Active Protocol: Document 11/06/21 11:16 AB (Rec: 11/06/21 13:57 AB [email or web address]) PT-Bed Mobility Assessment Rolling Type of Rolling Log Rolling Level of Assist Maximal Assistance Supine to Sit Supine to Sit Maximum Assistance,1 Person Assistance,Bedrails PT-Transfer Assessment Sit to and From Stand Sit to and from Stand Maximum Assistance,1 Person Assistance,2 Person Assistance ,Use of Upper Extremities Equipment Transfer Assistive Device Gait Belt,Front Wheeled Walker Orthotic/Prosthetic Devices or Brace: No Transfers Transfer Destination Chair Transfer Technique Stand Step Pivot Transfer Ability Level of Assist Maximum Assistance,1 Person Assistance,2 Person Assistance ,Use of Upper Extremities Comments Mobility Comments educated pt on back precautions. BP supine: 114/53. completed log roll supine to sit max A and cues. able to sit on EOB CGA after positioning. BP in sittin/54. No c/o dizziness/lightheadedness. completed sit to stand max Ax 1-2 and max cues and step transfer to chair using FWW max A and cues. completed sit to stand from chair x 2 attempts max A x 1-2 and max cues and ambulated ~ 3 ft using FWW max A x 1-2 and max cues with chair follow. pt agreed to sit on the chair. positioned on the chair. call light and table placed within reach. Gait Assessment Gait Gait Assistance Required: Maximum Assistance,1 Person Assist,2 Person Assist Distance (Feet) 3 Able to Maintain Weight Bearing Status Yes During Gait Assistive Devices Assistive Device Gait Belt,Front Wheeled Walker Orthotic/Prosthetic Devices or Brace: No Gait Deviations General Gait Pattern Decreased Stride Length, Decreased Feet Clearance, Flexed Trunk,Step-to Gait Factors Limiting Gait Function Factors Limiting Gait Function Decreased Activity Tolerance, Decreased Strength,Limited Range of Motion,Pain,Poor Balance,Poor Safety Awareness PT-Balance Assessment Sitting Balance and Reactions Static Sitting Balance Ability Good Dynamic Sitting Balance Ability Fair Standing Balance and Reactions Static Standing Balance Ability Poor Dynamic Standing Balance Ability Poor Device Used FWW M5 PT-IP Objective Assessments Start: 11/06/21 13:41 Freq: NEEDED Status: Active Protocol: Document 11/06/21 11:16 AB (Rec: 11/06/21 13:57 AB [id number]) Orientation Orientation/Cognition Level of Alertness Alert Orientation Name,Place,Situation Language Function Ability No Deficits Noted Safety Awareness Decreased Safety Awareness Memory Description Short Term Impaired Gross Range of Motion Lower Extremity ROM Assessment Within Functional Limits Strength Lower Extremity Strength Assessment Bilaterally Impaired Comments Strength Comments LLE: 3+/5 RLE: 3/5 Muscle Tone Muscle Tone WNL Yes M6 PT-IP Treatment Start: 11/06/21 13:41 Freq: NEEDED Status: Active Protocol: Document 11/06/21 11:16 AB (Rec: 11/06/21 13:57 AB [email or web address]) Physical Therapy Treatment Education Education Provided Precautions,Weight Bearing Status,Post-Op Packet,Safety M7 PT-IP Assessment and Plan Start: 11/06/21 13:41 Freq: NEEDED Status: Active Protocol: Document 11/06/21 11:16 AB (Rec: 11/06/21 13:57 AB [email or web address]) PT Summary Assessment and Plan Potential Rehabilitation Potential Fair Status of Condition at Evaluation Evolving Summary Impairments Pain,ROM,Strength,Balance, Coordination,Sensation,Tone, Cognition,Bed Mobility, Transfers,Gait,Activity Tolerance Assessment Summary Pt s/p L3-4, L4-5 TLIF but with dural tear affecting mobility and progression. pt was not able to participate with PT yesterday due to c/o dizziness and vision changes. pt doing better to day but is requiring max A x1-2 with mobility and unable to tolerate much activity and was only able to ambulate ~ 3 ft. pt will require SNF rehab to improve strength and mobility . Goals Bed Mobility Goal Minimal Assistance Transfer Goal Minimal Assistance,Front Wheeled Walker Gait Goal Minimal Assistance,Front Wheel Walker Gait Distance 50 Other Goals improve bed mobility, transfers using FWW CGA and ambulation using fWW CGA 100 ft Days to Meet Goals 10 Frequency of Treatment Frequency Of Treatment Twice a Day Treatment Plan Physical Therapy Treatment Plan Bed Mobility Training,Transfer Training,Gait Training, Therapeutic Exercise,Balance Retraining,Post Op Education, Discharge Planning,Hot or Cold Pack,Neuromuscular Re-ed, Coordination Retraining,Manual Therapy Precautions Lumbar Precautions Log Roll,No Twisting,Limit Bending,Lifting Restriction of 10 lbs,Gait Belt above Incisional Area Recommendations To Nursing Amount of Assist Needed 1 Person Assist Discharge Recommendations PT Discharge Recommendations SNF Rehab Transportation Needs at Discharge Wheelchair/Cabulance
[2021-11-06 11:35] VITALS: BP 119/54; PULSE 79
--- NOTE | 2021-11-06 11:58 | P.PN_ITS ---
Subjective Subjective Interval history: THIS IS A VERY PLEASANT 86-YEAR-OLD FEMALE WITH THE RECENT LUMBAR SPINE SURGERY. PATIENT OF A HISTORY OF DIABETES , URINARY INCONTINENCE, SEVERE OSTEOARTHRITIS. HOSPITALIST TEAM CONSULTED FOR MEDICAL MANAGEMENT. TODAY PATIENT ALSO REPORTED FEELING SLEEPY THIS MORNING SHE DID COMPLAIN OF RECENT PAIN TO THE LOWER BACK AND WE SEE HER PRN MEDS DENIES ANY INCREASING SHORTNESS OF BREATH DENIES ANY FEVER OR CHILLS WOULD LIKE TO KEEP HER MICHAEL CATHETER DUE TO SIGNIFICANT URINARY INCONTINENCE NO OTHER SIGNIFICANT ISSUES OVERNIGHT Exam Vital Signs (past 8 hours): - 11/06/21 04:00 11/06/21 07:50 Temperature 98.8 F 98.1 F Pulse Rate 87 85 Respiratory Rate 18 24 Blood Pressure 143/58 H 136/60 Pulse Oximetry 94 95 Oxygen Delivery Method Room Air Oxygen Flow Rate 0 Narrative Exam Narrative: NO ACUTE DISTRESS.? PATIENT IS ALERT ORIENTED X3. VITAL SIGNS STABLE HEAD ATRAUMATIC AND NORMOCEPHALIC NECK : SUPPLE WITHOUT ADENOPATHY NO CAROTID BRUITS.? NO JVD EYE:? EOMI, PERRLA, NORMAL CONJUNCTIVA; NO JAUNDICE CHEST:? REGULAR RATE.? ? NO RUBS.? PMI IS NON DISPLACED. NORMAL S1-S2 PULMONARY:? DECREASED BS OVER THE BASES.? MILD BIBASILAR CRACKLES NOTED; NO INCREASED DULLNESS TO PERCUSSION ABDOMEN:? SOFT.? NONTENDER.? NONDISTENDED.? BOWEL SOUNDS ARE PRESENT IN ALL 4 QUADRANTS.? NO MASS. EXTREMITIES:? TRACE BILATERAL LOWER EXTREMITY EDEMA..? NO CYANOSIS CLUBBING NOTED. NEURO:? CRANIAL NERVES 2-12 GROSSLY INTACT. NO FOCAL NEUROLOGICAL DEFICIT NOTED. MSK:? CLOSE SURGICAL INCISION ALONG THE LOWER BACK.? NO SIGNIFICANT DRAINAGE.? MILD REDNESS APPRECIATED.? MILD PARASPINAL TENDERNESS WITH PALPATION OF THE LOWER BACK SKIN:? NORMAL FOR ETHNICITY; NO ECCHYMOSIS.? NO LESION. ? GOOD? TURGOR.; NO RASHES :? NORMAL EXTERNAL GENITALIA. MICHAEL CATHETER IN PLACE. YELLOWISH URINE NOTED PSYCH :? APPROPRIATE MOOD AND AFFECT.? ALERT AWAKE ORIENTED X3 Objective Labs Result Diagrams: 11/05/21 18:20 Labs: Laboratory Results - last 24 hr 11/05/21 18:20 Hgb 9.5 L Hct 28.6 L PFSH Medical History (Updated 11/06/21 @ 08:18 by Mary White PA-C) Anxiety Aortic valve regurgitation Breast cancer (1995) CAD (coronary artery disease) Carotid artery disease CKD (chronic kidney disease) COPD (chronic obstructive pulmonary disease) Diabetes Diverticular disease HLD (hyperlipidemia) HTN (hypertension) Osteoarthritis Osteoarthropathy Urinary incontinence in female Surgical History (Updated 11/06/21 @ 08:16 by Mary White PA-C) History of hysterectomy History of surgery Hx of bilateral cataract extraction Hx of breast surgery (1995) Hx of elbow surgery Hx of lumpectomy Hx of repair of right rotator cuff Hx of tonsillectomy Social History household members: none Smoking Status: Never smoker alcohol intake: never Assessment & Plan Assessment & Plan narrative: IMPRESSION TYPE 2 DIABETES.? NON-INSULIN DEPENDENT. A1C PENDING STATUS POST L3-L4, L4-L5 TLIF POSTERIOR INSTRUMENTATION.? ORTHOPEDIC SURGERY ON BOARD CAD PER HISTORY HYPERTENSION PER HISTORY HYPERLIPIDEMIA PER HISTORY POSSIBLE CHRONIC KIDNEY DISEASE PER HISTORY COPD PER HISTORY URINARY INCONTINENCE PER HISTORY. MICHAEL CATHETER IN PLACE PLAN BLOOD SUGAR REMAINS SLIGHTLY ABOVE 200 WHICH IS FAIRLY ADEQUATE FOR A HOSPITALIZED PATIENT SLIDING-SCALE IS ON BOARD PATIENT IS ON GLIPIZIDE WELL TRADJENTA WILL ADD OTHER AGENT IF INDICATED CLINICALLY PATIENT ALSO CONTINUED TO HAVE SIGNIFICANT PAIN EXPECTED WILL HOWEVER TRY AND AVOID OPIOIDS IF POSSIBLE PATIENT WILL BE STARTED ON DEXAMETHASONE GABAPENTIN WILL BE ADDED TODAY WELL ROBAXIN ORDERED TO START THIS AFTERNOON. THIS COULD HELP AND DECREASE THE USE OF OPIOIDS TO CONTROL HER PAIN. DUE TO HER AGE OPIOIDS AND BENZOS ARE NOT RECOMMENDED IF POSSIBLE. AWARE OF THE POSSIBLE IMPACT OF STEROIDS ON THE BLOOD SUGAR WILL MONITOR CLOSELY. PATIENT TO CONTINUE WORK WITH PHYSICAL / OCCUPATIONAL THERAPY TEAMS PREVIOUSLY PLANNED MAINTAIN STRICT FALL PRECAUTIONS NURSING TO PROVIDE ASSISTANCE WITH ALL ACTIVITIES PATIENT TO BE OUT OF BED ONLY WITH NURSING ASSISTANCE ADDITIONAL MANAGEMENT PER CLINICAL COURSE WILL CONTINUE TO FOLLOW WITH YOU. 11/05 WILL CHECK LABS IN THE MORNING THIS WILL INCLUDE A CMP, CBC, MAGNESIUM OR PHOSPHORUS LEVEL WILL ALSO ADD A HEMOGLOBIN A1C START ON INSULIN SLIDING SCALES DIABETIC DIET RECOMMENDED MONITOR CLOSELY FOR ANY SIGN OF ACUTE COMPLICATIONS POSTOPERATIVELY 5W'S IN REGARD TO THE REPORTED BLURRY VISION NO WORKUP IS INDICATED AT THIS TIME PATIENT DENIED HAVING ANY SIGNIFICANT ISSUES WITH HER VISION THIS MORNING WILL CONSIDER CT OR MRI IF INDICATED CLINICALLY CONTINUE TO MOBILIZE PATIENT WELL TOLERATED WHILE MAINTAINING STRICT FALL PRECAUTIONS AND FOLLOWING SURGERY TEAM RECOMMENDATIONS IN? REGARD TO WEIGHT- BEARING/RESTRICTION WE GREATLY APPRECIATE THIS KIND CONSULT AND WILL GLADLY FOLLOW WITH YOU Time Spent With Patient Critical Care time: I spent a total of [] minutes of critical care time on this patient's care today; this time is exclusive of procedural time.
[2021-11-06] MEDS: DEXAMETHASONE 10 MG/ML VIAL 8 MG IV (12:12)
--- NOTE | 2021-11-06 13:55 | OT.IP.EVAL ---
Current Diagnoses Acute posthemorrhagic anemia (11/05/21) Type 2 diabetes mellitus without complications (11/05/21) Dural tear (11/05/21) Other secondary scoliosis, lumbar region (11/05/21) Spinal stenosis, lumbar region with neurogenic claudication (11/05/21) Unspecified urinary incontinence (11/05/21) Arthrodesis status (11/05/21) Surgery Performed Operation Date: 11/04/21 07:45 Actual Procedures p L3-4, L4-5 TLIF w. posterior instrumentation-Robot - Shiela Hawk MD Past Medical History (Last Updated 11/06/21 @ 08:18 by Mary White PA-C) Anxiety Aortic valve regurgitation Breast cancer (1995) CAD (coronary artery disease) Carotid artery disease CKD (chronic kidney disease) COPD (chronic obstructive pulmonary disease) Diabetes Diverticular disease History of hysterectomy History of surgery HLD (hyperlipidemia) HTN (hypertension) Hx of bilateral cataract extraction Hx of breast surgery (1995) Hx of elbow surgery Hx of lumpectomy Hx of repair of right rotator cuff Hx of tonsillectomy Osteoarthritis Osteoarthropathy Urinary incontinence in female Surgical History (Last Reviewed 11/05/21 @ 15:27 by Tali Jean DO) History of hysterectomy History of surgery Hx of bilateral cataract extraction Hx of breast surgery (1995) Hx of elbow surgery Hx of lumpectomy Hx of repair of right rotator cuff Hx of tonsillectomy Occupational Therapy Inpatient Evaluation/Re-Eval M1 PT/OT-IP Prior Functional Status Start: 11/06/21 13:41 Freq: NEEDED Status: Active Protocol: Document 11/06/21 17:10 [facility] (Rec: 11/06/21 17:24 [facility] [id number]) Medical Review Prior Functional Status Medical History Reviewed Yes Communication able to make needs known Mobility and Gait pt stated that she is modified independent with all mobilities and ambulation without AD Activities of Daily Living and IADL's Pt states took longer to do her ADl and IADl needs due to her pain. Social History Household Members none Living Arrangements Snf Facility Number of Floors (Floors) One Floor Number of Stairs To Enter/Railing? pt lives at [facility] no steps to enter Home Environment Standard Height Toilet,Tub/ Shower Home Equipment Four Wheel Walker,Hand Held Shower,Long Handled Shoe Horn, Steam Drier Operator,Sock Aid,Grab Bars Near Toilet,Grab Bars In Shower M2 OT-IP Current Condition Start: 11/06/21 17:08 Freq: Status: Active Protocol: Document 11/06/21 17:10 [facility] (Rec: 11/06/21 17:24 [facility] [id number]) Occupational Therapy Current Condition Current Condition Evaluation Date 11/06/21 Treatment Diagnosis s/p L3-4, L4-5 TLIF with small dural tear, mobility . Diagnosis Onset Date 11/04/21 Post Operative Precautions Lumbar Precautions Log Roll,No Twisting,Limit Bending,Lifting Restriction of 10 lbs,Gait Belt above Incisional Area M3 OT- IP Subjective and Pain Start: 11/06/21 17:08 Freq: Status: Active Protocol: Document 11/06/21 17:10 [facility] (Rec: 11/06/21 17:24 [facility] [id number]) OT- Subjective Occupational Therapy Visit Type Type Initial Evaluation Visit Start Time 09:08 Visit Stop Time 13:55 Total Visit Minutes 37 Notes Pt seen for split treatment due to decreased bp. Occupational Therapy Visit Comments Patient Comments Pt wanting to get back to bed. Patient/Caregiver Goals To go to skilled rehab. OT Pain Assessment Pain When Pain Assessed At Rest Pain Present Pain Present Pain Reported Location back Intensity 10 Scale Used Numeric (0 - 10) M4 OT- IP ADL's Start: 11/06/21 17:08 Freq: Status: Active Protocol: Document 11/06/21 17:10 [facility] (Rec: 11/06/21 17:24 [facility] [id number]) OT [id number] Comments OT Self-Feeding Comments NOt at meal time. OT ADL-Grooming Comments OT Grooming Comments Pt not wanting to perform at this time. OT ADL-Oral Care Comments Oral Care Comments Pt not wanting to perform. Educated best to spit into a cup to best follow her back precautions. OT ADL-Dressing General Eval Lower Body Dressing Ability Maximum Assistance Areas Needing Assistance Socks OT ADL-Toileting Comments OT Toileting Comments Pt not having to go at this time. OT ADL-Bathing Comments OT Bathing Comments NOt performed. M5 OT- IP IADL's Start: 11/06/21 17:08 Freq: Status: Active Protocol: Document 11/06/21 17:10 [facility] (Rec: 11/06/21 17:24 [facility] [id number]) OT-Instrumental Activities of Daily Living Home Safety Awareness Home Safety Comments Pt too groggy at this time and would be best to have someone assist her for all her needs. M6 OT- IP Functional Cognition Start: 11/06/21 17:08 Freq: Status: Active Protocol: Document 11/06/21 17:10 [facility] (Rec: 11/06/21 17:24 [facility] [id number]) Cognitive Factors Limiting Selfcare Function Cognitive Ability Level of Alertness Drowsy Ability to Follow Commands Able to Follow One Step Commands with Increased Time, Able to Follow One Step Commands with Repetition Safety Awareness Decreased Recall of Precautions,Decreased Ability to Apply Precautions Cognitive Comments Cognitive Assessment Comments Pt very drowsy and having a difficulty time to follow commands and recall/ incorporate her back precautions at this time. OT- Vision and Hearing OT- Hearing Assessment OT- Hearing Assessment WFL OT- Vision Assessment Visual Acuity Glasses All The Time M7 OT- IP Mobility and Balance Start: 11/06/21 17:08 Freq: Status: Active Protocol: Document 11/06/21 17:10 [facility] (Rec: 11/06/21 17:24 [facility] [id number]) OT- Bed Mobility Assessment Sit to Supine Sit to Supine Assist Maximum Assistance,1 Person Assistance OT-Transfer Assessment Sit to and From Stand Sit to and from Stand Maximum Assistance,1 Person Assistance Transfers Transfer Ability Moderate Assistance,Maximum Assistance,1 Person Assistance Technique Transfer Destination Bed,Chair Comments Mobility Comments MAXA to stand to FWW and MOD/MAXA x1 to help transfer back into the bed and MAXA to get get her legs into the bed. BP in AM sitting 97/39, 101/44 and supine 101/42 and 100/41 OT- Balance Assessment Sitting Balance and Reactions Static Sitting Balance Ability Good Dynamic Sitting Balance Ability Fair Standing Balance and Reactions Static Standing Balance Ability Poor M8 OT- IP Objective Assessments Start: 11/06/21 17:08 Freq: Status: Active Protocol: Document 11/06/21 17:10 [facility] (Rec: 11/06/21 17:24 [facility] [id number]) OT-Muscle Tone Assessment Muscle Tone WNL Yes M9 OT- IP Assessment and Plan Start: 11/06/21 17:08 Freq: Status: Active Protocol: Document 11/06/21 17:10 [facility] (Rec: 11/06/21 17:24 [facility] [id number]) OT Summary Assessment and Plan Potential Rehabilitation Potential Good Analytic Complexity at Evaluation Low Summary OT Impairments Pain,Strength,Balance, Functional Cognition, Functional Mobility,Grooming, Dressing,Toileting,Bathing, Toilet Transfers,Shower Transfers,Activity Tolerance Progress Towards Goals Slow Progress due to Medical Issues,Slow Progress due to Activity Tolerance,Slow Progress due to Cognition Assessment Summary Pt low complexity and main barrier are having low BP, groogy, and needing extensive MAXA assist for mobility needs at this time. Pt will highly benefit from further practice of back precautions for ADl and mobility needs. Pt would benefit from skilled rehab prior to going home. Goals Grooming Goal Independent Dressing Goal Independent Toileting Goal Independent Bathing Goal Independent Toilet Transfer Goal Independent Shower Transfer Goal Independent Patient/Caregiver Education Goal Demonstrate Post-Op Precautions Days to Meet Goals 20 Frequency of Treatment Frequency Of Treatment Once a Day Treatment Plan OT Treatment Plan ADL Training,Functional Cognition Training,Functional Mobility,Patient/Family Education,Discharge Planning Other Treatment Recommendations and Next Practice LB dressing equipment Treatment Focus . Discharge Recommendations OT Discharge Recommendations SNF Rehab Transportation Needs at Discharge Wheelchair/Cabulance
--- NOTE | 2021-11-06 13:57 | CM.DPC ---
DCP: Pt needing SNF Per ortho, patient needing SNF placement. PT able to work with patient this afternoon following her BP issues yesterday and this morning. PT recommends SNF[facility] due to not being contracted with her insurance. DCP spoke with [facility] and they would like to accept patient pending PT evaluation. [facility] currently in norovirus outbreak, earliest acceptance would be Wednesday 11/08 and continuing to review pt case. DCP: faxed pt note to [facility] and [facility]. P: DCP to continue to follow for SNF review and confirm [facility] will start [employer] Auth. Sierra Vasquez RN/KATIEP
[2021-11-06] MEDS: methocarbamoL 500 MG TABLET PO ×2 (15:23→20:05)
[2021-11-06 15:37] LABS: Add Manual Diff / Slide Review NO; Basophils Absolute Auto 0 /uL (0-100); Basophils Percent Auto 0.2 % (0-2); Eosinophils Absolute Auto 0 /uL (0-450); Eosinophils Percent Auto 0.4 % (2-4); Hematocrit 26.7 % (36-46); Lymphocytes Absolute Auto 700 /uL (1100-4500); Lymphocytes Percent Auto 6.7 % (25-40); Mean Corpuscular HGB Conc 33.8 % (30-36); Mean Corpuscular Hemoglobin 30.4 PG (26-34); Monocytes Absolute Auto 800 /uL (0-900); Monocytes Percent Auto 7.4 % (3-14); Neutrophils Absolute Auto 8600 /uL (1500-7000); Neutrophils Percent Auto 85.3 % (50-75); Platelet Count 126 X10^3/uL (150-400); Red Blood Cell Count 2.96 X10^6/uL (4.0-5.2); Red Cell Distribution Width 14.3 % (11.6-14.8); White Blood Cell Count 10.1 X10^3/uL (4.5-11.0)
--- NOTE | 2021-11-06 15:37 | PT-IP ANOTE ---
checked on pt and pt refused PT and stated that she did not get to rest yet and wants PT to come back in an hour. checked pt again after ~ 1 hour and pt continues to refuse. pt went back to sleep after talking to do PT.
[2021-11-06 16:12] LABS: Alanine Aminotransferase 18 IU/L (<35); Albumin 3.6 g/dL (3.5-5.0); Albumin Globulin Ratio 1.1 (1.0-2.8); Alkaline Phosphatase 47 U/L (38-126); Aspartate Aminotransferase 32 IU/L (14-36); BUN Creatinine Ratio 14.6 (6-22); Bilirubin Total 0.8 mg/dL (0.2-1.3); Blood Urea Nitrogen 22 mg/dL (7-17); Calcium 8.9 mg/dL (8.4-10.2); Carbon Dioxide 23 mmol/L (22-32); Chloride 102 mmol/L (98-107); Estimated Glomerular Filt Rate 33 mL/min (>60); Globulin 3.2 g/dL (1.7-4.1); Glucose 280 mg/dL (80-110); HEMOLYSIS < 15 (0-50); Potassium 4.3 mmol/L (3.4-5.1); Sodium 133 mmol/L (137-145); Total Protein 6.8 g/dL (6.3-8.2)
[2021-11-06 16:17] LABS: Hemoglobin A1C% w Est Avg Glu 7.1 % (4.0-6.0)
[2021-11-06 16:50] VITALS: BP 130/47; PULSE 76; RESP 22; TEMP 35.9; O2SAT 96
[2021-11-06] MEDS: ATORVASTATIN 20 MG TABLET 80 MG PO (20:05)
[2021-11-06] MEDS: SENNOSIDES 8.6 MG TABLET 17.2 MG PO (20:05)
[2021-11-06 20:16] VITALS: BP 108/71; PULSE 82; RESP 18; TEMP 36; O2SAT 97
[2021-11-07] VITALS (9 sets, daily range): BP systolic 114–150; BP diastolic 54–67; PULSE 67–84; RESP 17–22; TEMP 35.8–36.2; O2SAT 94–96
[2021-11-07 05:16] LABS: Add Manual Diff / Slide Review NO; Basophils Absolute Auto 0 /uL (0-100); Basophils Percent Auto 0.2 % (0-2); Eosinophils Absolute Auto 0 /uL (0-450); Hematocrit 28.8 % (36-46); Hemoglobin 9.5 g/dL (12.0-16.0); Lymphocytes Absolute Auto 600 /uL (1100-4500); Lymphocytes Percent Auto 6.9 % (25-40); Mean Corpuscular HGB Conc 32.9 % (30-36); Mean Corpuscular Hemoglobin 29.5 PG (26-34); Mean Corpuscular Volume 89.9 fL (80-100); Monocytes Absolute Auto 600 /uL (0-900); Monocytes Percent Auto 7.3 % (3-14); Neutrophils Absolute Auto 7600 /uL (1500-7000); Neutrophils Percent Auto 85.6 % (50-75); Platelet Count 136 X10^3/uL (150-400); Red Cell Distribution Width 14.5 % (11.6-14.8); White Blood Cell Count 8.9 X10^3/uL (4.5-11.0)
[2021-11-07 05:30] LABS: Alanine Aminotransferase 19 IU/L (<35); Albumin 3.9 g/dL (3.5-5.0); Albumin Globulin Ratio 1.1 (1.0-2.8); Alkaline Phosphatase 54 U/L (38-126); Aspartate Aminotransferase 29 IU/L (14-36); BUN Creatinine Ratio 18.5 (6-22); Bilirubin Total 0.7 mg/dL (0.2-1.3); Blood Urea Nitrogen 27 mg/dL (7-17); Calcium 9.5 mg/dL (8.4-10.2); Carbon Dioxide 22 mmol/L (22-32); Chloride 104 mmol/L (98-107); Estimated Glomerular Filt Rate 35 mL/min (>60); Globulin 3.5 g/dL (1.7-4.1); Glucose 257 mg/dL (80-110); HEMOLYSIS < 15 (0-50); Magnesium 2.4 mg/dL (1.6-2.3); Phosphorous 3.1 mg/dL (2.8-4.1); Potassium 4.2 mmol/L (3.4-5.1); Sodium 136 mmol/L (137-145); Total Protein 7.4 g/dL (6.3-8.2)
[2021-11-07] MEDS: LEVOTHYROXINE 25 MCG TABLET PO (06:17)
[2021-11-07] MEDS: PANTOPRAZOLE DR 20 MG TABLET PO (06:17)
--- NOTE | 2021-11-07 07:39 | PM.PNPO.1 ---
Subjective Subjective Date Patient Seen: 11/07/21 Time Patient Seen: 07:39 Interval history: Pt sitting up in bed. Appears to be much more comfortable today and says she is feeling somewhat better, both all-over and in terms of pain control. [place] she made good progress w/ PT yesterday, though per their notes she did refuse PT in the afternoon. She is upset about her blood sugars being in the 300s - she says she is usually 150s. She was started on steroids yesterday, which likely contributed to both the improvement in pain and increase in blood glucose. Exam Vital Signs (past 8 hours): - 11/07/21 00:00 11/07/21 04:11 Temperature 97.2 F L 96.4 F L Pulse Rate 71 68 Respiratory Rate 17 17 Blood Pressure 150/67 H 128/55 L Pulse Oximetry 94 96 Oxygen Delivery Method Room Air Oxygen Flow Rate 0 Narrative Exam Narrative: Much more cooperative w/ exam today, 4/5 in hip flexors, quadriceps, hamstrings, 5/5 in DF, PF, EHL bilaterally. Sensation to light touch intact throughout BLE. Calves soft, compressible, nontender and without palpable cords or masses. Low back dressing placed intraoperatively is CDI. Objective Labs Result Diagrams: 11/07/21 04:52 11/07/21 04:52 Labs: Laboratory Results - last 24 hr 11/06/21 11/06/21 11/06/21 15:19 15:19 15:19 WBC 10.1 RBC 2.96 L Hgb 9.0 L Hct 26.7 L MCV 90.0 MCH 30.4 MCHC 33.8 RDW 14.3 Plt Count 126 L Neut % (Auto) 85.3 H Lymph % (Auto) 6.7 L Cassia % (Auto) 7.4 Eos % (Auto) 0.4 L Baso % (Auto) 0.2 Neut # (Auto) 8600 H Lymph # (Auto) 700 L Cassia # (Auto) 800 Eos # (Auto) 0 Baso # (Auto) 0 Sodium 133 L Potassium 4.3 Chloride 102 Carbon Dioxide 23 BUN 22 H Creatinine 1.51 H Estimated GFR 33 L BUN/Creatinine Ratio 14.6 Glucose 280 H Hemoglobin A1c 7.1 H Calcium 8.9 Phosphorus 3.0 Magnesium Total Bilirubin 0.8 AST 32 ALT 18 Alkaline Phosphatase 47 Total Protein 6.8 Albumin 3.6 Globulin 3.2 Albumin/Globulin Ratio 1.1 11/07/21 11/07/21 04:52 04:52 WBC 8.9 RBC 3.20 L Hgb 9.5 L Hct 28.8 L MCV 89.9 MCH 29.5 MCHC 32.9 RDW 14.5 Plt Count 136 L Neut % (Auto) 85.6 H Lymph % (Auto) 6.9 L Cassia % (Auto) 7.3 Eos % (Auto) 0.0 L Baso % (Auto) 0.2 Neut # (Auto) 7600 H Lymph # (Auto) 600 L Cassia # (Auto) 600 Eos # (Auto) 0 Baso # (Auto) 0 Sodium 136 L Potassium 4.2 Chloride 104 Carbon Dioxide 22 BUN 27 H Creatinine 1.46 H Estimated GFR 35 L BUN/Creatinine Ratio 18.5 Glucose 257 H Hemoglobin A1c Calcium 9.5 Phosphorus 3.1 Magnesium 2.4 H Total Bilirubin 0.7 AST 29 ALT 19 Alkaline Phosphatase 54 Total Protein 7.4 Albumin 3.9 Globulin 3.5 Albumin/Globulin Ratio 1.1 [facility] Medical History (Updated 11/06/21 @ 08:18 by Mary White PA-C) Anxiety Aortic valve regurgitation Breast cancer (1995) CAD (coronary artery disease) Carotid artery disease CKD (chronic kidney disease) COPD (chronic obstructive pulmonary disease) Diabetes Diverticular disease HLD (hyperlipidemia) HTN (hypertension) Osteoarthritis Osteoarthropathy Urinary incontinence in female Surgical History (Updated 11/06/21 @ 08:16 by Mary White PA-C) History of hysterectomy History of surgery Hx of bilateral cataract extraction Hx of breast surgery (1995) Hx of elbow surgery Hx of lumpectomy Hx of repair of right rotator cuff Hx of tonsillectomy Social History household members: none Smoking Status: Never smoker alcohol intake: never Assessment & Plan Post-op Assessment and plan (1) Status post lumbar spinal fusion: Assessment and Plan narrative: Continue to mobilize w/ PT. Per CM note, plan is for [facility]/c to [facility]. (2) Dural tear: Assessment and Plan narrative: Repaired at time of surgery; no evidence of further CSF leak. (3) Acute postoperative anemia due to expected blood loss: Assessment and Plan narrative: Asymptomatic; no intervention needed at this time. (4) Urinary incontinence in female: Assessment and Plan narrative: Will continue catheter at pts request; remove or change by POD# 7. (5) Diabetes: Assessment and Plan narrative: Steroids/blood glucose control per hospitalist service - appreciate the help with this patient. Postoperative Procedures: Procedures Operation Date: 11/04/21 07:45 Actual Procedure Side Surgeon p L3-4, L4-5 TLIF w. posterior instrumentation-Robot Shiela Hawk MD Postoperative day: 3
--- NOTE | 2021-11-07 08:22 | CM.DPC ---
DCP SNF Planning Per Ortho PA, recommending likely SNF at d/c prior to pt being safe for home. Per PT/OT, finally able to work with pt some yesterday afternoon after being hypotensive and recommending SNF as pt currently 2PA. SW confirmed with [facility] that [facility] can accept pt and will start [employer] auth this morning () and SW faxed PT/OT notes to [facility] towards SNF auth request. [facility] not contracted with pt's [employer] and [facility] currently cannot accept new admissions but will know more from [facility] re their Norovirus outbreak and when they might be able to accept new admissions. SW met bedside with pt and updated on above and pt confirms that [facility] was not her first preference but aware of the barriers of her [employer] MCR and is agreeable to [facility] at d/c as she is not safe for d/c home. Pt states she worked at [employer] for 19 years and therefore very aware of the SNFs and other facilities in the area. SW updated RN. Plan: SW to follow for [facility] to obtain [employer] auth towards pt's d/c to SNF. Pt vaccinated and will likely need updated COVID swab at discharge. PASRR previously completed as well. Keshia Smith, PANTOGRAPH SETTER
[2021-11-07] MEDS: INSULIN LISPRO 100 UNIT/ML 3ML VIAL SUBCUT ×4 (08:50→21:26)
[2021-11-07] MEDS: glipiZIDE 5 MG TABLET 10 MG PO ×2 (08:52→21:26)
[2021-11-07] MEDS: MAGNESIUM HYDROXIDE 30 ML UDC PO (08:52)
[2021-11-07] MEDS: CHOLECALCIFEROL (VITAMIN D3) 1,000 UNIT TABLET 2000 UNIT PO (08:53)
[2021-11-07] MEDS: DOCUSATE 100 MG CAPSULE PO ×2 (08:53→21:26)
[2021-11-07] MEDS: dexAMETHasone 4 MG TABLET PO (08:53)
[2021-11-07] MEDS: FENOFIBRATE, MICRONIZED 67 MG CAPSULE PO (08:53)
[2021-11-07] MEDS: GABAPENTIN 100 MG CAPSULE PO ×3 (08:53→21:26)
[2021-11-07] MEDS: FOLIC ACID 1 MG TABLET 0.5 MG PO (08:55)
[2021-11-07] MEDS: lisinopriL 10 MG TABLET PO (08:55)
[2021-11-07] MEDS: HYDROMORPHONE 0.5 MG INJ 0.2 MG IV (09:00)
[2021-11-07] MEDS: methocarbamoL 500 MG TABLET PO ×3 (09:15→21:29)
[2021-11-07] MEDS: OXYCODONE IR 5 MG TABLET PO ×3 (09:42→22:36)
--- NOTE | 2021-11-07 11:51 | PT.IPTN ---
Current Diagnoses Acute posthemorrhagic anemia (11/05/21) Type 2 diabetes mellitus without complications (11/05/21) Dural tear (11/05/21) Other secondary scoliosis, lumbar region (11/05/21) Spinal stenosis, lumbar region with neurogenic claudication (11/05/21) Unspecified urinary incontinence (11/05/21) Arthrodesis status (11/05/21) Surgery Performed Operation Date: 11/04/21 07:45 Actual Procedures p L3-4, L4-5 TLIF w. posterior instrumentation-Robot - Shiela Hawk MD Physical Therapy Treatment Note M2 PT-IP Current Condition Start: 11/06/21 13:41 Freq: NEEDED Status: Active Protocol: Document 11/06/21 11:16 AB (Rec: 11/06/21 13:57 AB [id number]) Physical Therapy Current Condition Current Condition Evaluation Date 11/06/21 Treatment Diagnosis s/p L3-4, L4-5 TLIF; difficulties in walking Onset Date 11/04/21 M3 PT-IP Subjective Start: 11/06/21 13:41 Freq: NEEDED Status: Active Protocol: Document 11/07/21 11:13 KS (Rec: 11/07/21 13:10 KS [id number]) Subjective Physical Therapy Visit Type Type Treatment Note Visit Start Time 11:13 Visit Stop Time 11:51 Total Visit Minutes 38 Number of OIL FIELD TECHNICIAN Visits 1 Physical Therapy Visit Comments Patient Comments agreeable to do PT Therapy Pain Assessment Pain When Pain Assessed After Treatment Pain Present Pain Present Pain Reported Location back Intensity 5 Scale Used Numeric (0 - 10) Pain Behaviors Facial Grimacing,Guarding, Wincing Pain Management Techniques Distraction,Re-positioning, Timing of Activity with Medications M4 PT-IP Mobility and Gait Start: 11/06/21 13:41 Freq: NEEDED Status: Active Protocol: Document 11/07/21 11:13 KS (Rec: 11/07/21 13:10 KS [id number]) PT-Bed Mobility Assessment Rolling Type of Rolling Log Rolling Level of Assist Moderate Assistance Supine to Sit Supine to Sit Minimal Assistance,1 Person Assistance,Head of Bed Elevated Scooting Scooting to Edge of Bed Contact Guard Assistance PT-Transfer Assessment Sit to and From Stand Sit to and from Stand Moderate Assistance,Maximum Assistance,1 Person Assistance ,Use of Upper Extremities Equipment Transfer Assistive Device Gait Belt,Front Wheeled Walker Orthotic/Prosthetic Devices or Brace: No Transfers Transfer Destination Chair Transfer Technique Pt ambulated w/ FWW Transfer Ability Level of Assist Moderate Assistance,1 Person Assistance,Use of Upper Extremities Comments Mobility Comments Pt in bed upon arrival from PT and agreeable to ambulate. BP supine w/ head raised 133/60, seated: 115/59, and standin/59. CGA for scooting EOB, Max A for sit<>stand w/ FWW. Pt reported mild dizziness upon standing that decreased quickly, BP stable. She then performed ~[address] followed by ~25 ft ambulation w/ FWW and Mod A primarily for FWW management. Pt ambulated slowly w/ decreased stride and foot clearance. She then transferred to chair Min A for slow descent. Pt performed 3x sit<>stand, 1st and second Mod A, Min A for final sit<> stand w/ cues for hand placement and sequencing. Pt then ambulated additional 30 ft w/ FWW Min A w/ cues for FWW mgmt. Pt returned to chair and left in chair w/ all needs in reach. Gait Assessment Gait Gait Assistance Required: Minimum Assistance,Moderate Assistance,1 Person Assist Distance (Feet) 30 Able to Maintain Weight Bearing Status Yes During Gait Assistive Devices Assistive Device Gait Belt,Front Wheeled Walker Orthotic/Prosthetic Devices or Brace: No Gait Deviations General Gait Pattern Decreased Stride Length, Decreased Feet Clearance, Flexed Trunk,Narrow Based Gait Factors Limiting Gait Function Factors Limiting Gait Function Decreased Activity Tolerance, Decreased Strength,Limited Range of Motion,Pain,Poor Balance,Poor Safety Awareness Comments Gait Comments Please refer to mobility section for details. Stair Climbing Assessment Comments Stair Climbing Comments Not assessed. PT-Balance Assessment Sitting Balance and Reactions Static Sitting Balance Ability Good Dynamic Sitting Balance Ability Good Standing Balance and Reactions Static Standing Balance Ability Fair Dynamic Standing Balance Ability Fair Device Used FWW M5 PT-IP Objective Assessments Start: 11/06/21 13:41 Freq: NEEDED Status: Active Protocol: Document 11/06/21 11:16 AB (Rec: 11/06/21 13:57 AB [id number]) Orientation Orientation/Cognition Level of Alertness Alert Orientation Name,Place,Situation Language Function Ability No Deficits Noted Safety Awareness Decreased Safety Awareness Memory Description Short Term Impaired Gross Range of Motion Lower Extremity ROM Assessment Within Functional Limits Strength Lower Extremity Strength Assessment Bilaterally Impaired Comments Strength Comments LLE: 3+/5 RLE: 3/5 Muscle Tone Muscle Tone WNL Yes M6 PT-IP Treatment Start: 11/06/21 13:41 Freq: NEEDED Status: Active Protocol: Document 11/07/21 11:13 KS (Rec: 11/07/21 13:10 AL [id number]) Physical Therapy Treatment Education Education Provided Precautions,Safety Other Treatments Other Treatment Performed 3x sit<>Stands M7 PT-IP Assessment and Plan Start: 11/06/21 13:41 Freq: NEEDED Status: Active Protocol: Document 11/07/21 11:13 KS (Rec: 11/07/21 13:10 AL [id number]) PT Summary Assessment and Plan Potential Rehabilitation Potential Fair Status of Condition at Evaluation Evolving Summary Impairments Pain,ROM,Strength,Balance, Coordination,Sensation,Tone, Cognition,Bed Mobility, Transfers,Gait,Activity Tolerance Progress Towards Goals Slow Progress due to Pain,Slow Progress due to Activity Tolerance Assessment Summary Pt showed improvement w/ mobility and activity tolerance today, but ultimately still requiring up to Mod A for bed mobility, transfers, and ambulation. Able to perform marching in place, sit<>stands, and 30 ft ambulation w/ FWW needing frequent cues for FWW management, sequencing, and hand placement. Pt will require SNF to improve strength and functional mobility independence. Goals Bed Mobility Goal Minimal Assistance Transfer Goal Minimal Assistance,Front Wheeled Walker Gait Goal Minimal Assistance,Front Wheel Walker Gait Distance 50 Other Goals improve bed mobility, transfers using FWW CGA and ambulation using fWW CGA 100 ft Days to Meet Goals 10 Frequency of Treatment Frequency Of Treatment Twice a Day Treatment Plan Physical Therapy Treatment Plan Bed Mobility Training,Transfer Training,Gait Training, Therapeutic Exercise,Balance Retraining,Post Op Education, Discharge Planning,Hot or Cold Pack,Neuromuscular Re-ed, Coordination Retraining,Manual Therapy Precautions Lumbar Precautions Log Roll,No Twisting,Limit Bending,Lifting Restriction of 10 lbs,Gait Belt above Incisional Area Recommendations To Nursing Amount of Assist Needed 1 Person Assist Discharge Recommendations PT Discharge Recommendations SNF Rehab Transportation Needs at Discharge Wheelchair/Cabulance
[2021-11-07] MEDS: TRAMADOL 50 MG TABLET PO (11:54)
--- NOTE | 2021-11-07 13:00 | OT.IP.TRT ---
Current Diagnoses Acute posthemorrhagic anemia (11/05/21) Type 2 diabetes mellitus without complications (11/05/21) Dural tear (11/05/21) Other secondary scoliosis, lumbar region (11/05/21) Spinal stenosis, lumbar region with neurogenic claudication (11/05/21) Unspecified urinary incontinence (11/05/21) Arthrodesis status (11/05/21) Surgery Performed Operation Date: 11/04/21 07:45 Actual Procedures p L3-4, L4-5 TLIF w. posterior instrumentation-Robot - Shiela Hawk MD Occupational Therapy Treatment Note M2 OT-IP Current Condition Start: 11/06/21 17:08 Freq: Status: Active Protocol: Document 11/06/21 17:10 [facility] (Rec: 11/06/21 17:24 [facility] [id number]) Occupational Therapy Current Condition Current Condition Evaluation Date 11/06/21 Treatment Diagnosis s/p L3-4, L4-5 TLIF with small dural tear, mobility . Diagnosis Onset Date 11/04/21 Post Operative Precautions Lumbar Precautions Log Roll,No Twisting,Limit Bending,Lifting Restriction of 10 lbs,Gait Belt above Incisional Area M3 OT- IP Subjective and Pain Start: 11/06/21 17:08 Freq: Status: Active Protocol: Document 11/07/21 13:00 [facility] (Rec: 11/07/21 13:51 [facility] [id number]) OT- Subjective Occupational Therapy Visit Type Type Treatment Note Visit Start Time 13:00 Visit Stop Time 13:23 Total Visit Minutes 23 Occupational Therapy Visit Comments Patient Comments Pt agreed to get up to do grooming/oral care needs. Patient/Caregiver Goals TO go to skilled rehab. OT Pain Assessment Pain When Pain Assessed At Rest Pain Present Pain Present Denied Pain M4 OT- IP ADL's Start: 11/06/21 17:08 Freq: Status: Active Protocol: Document 11/07/21 13:00 [facility] (Rec: 11/07/21 13:51 [facility] [id number]) OT [id number] Comments OT Self-Feeding Comments Not at meal time. OT ADL-Grooming General Evaluation Grooming Ability Independent Areas Needing Assistance Retrieving/Set-up of Grooming Items Comments OT Grooming Comments Able to do while standing with the FWW. OT ADL-Oral Care General Eval Oral Care Ability Independent Areas of Assistance Retrieving/Set-Up of Items Comments Oral Care Comments vc to either sip into a cup versus hinge at her hips and sip. OT ADL-Dressing Comments OT Dressing Comments Pt not wanting to practice LB dressing equipment at this time. Pt not able to comfortably cross her legs at this time, and best to use LB dressing equipment. OT ADL-Toileting Comments OT Toileting Comments Pt not having to go at this time, wei still in place. M5 OT- IP IADL's Start: 11/06/21 17:08 Freq: Status: Active Protocol: Document 11/06/21 17:10 [facility] (Rec: 11/06/21 17:24 [facility] [id number]) OT-Instrumental Activities of Daily Living Home Safety Awareness Home Safety Comments Pt too groggy at this time and would be best to have someone assist her for all her needs. M6 OT- IP Functional Cognition Start: 11/06/21 17:08 Freq: Status: Active Protocol: Document 11/07/21 13:00 [facility] (Rec: 11/07/21 13:51 [facility] [id number]) Cognitive Factors Limiting Selfcare Function Cognitive Ability Level of Alertness Alert Patient Orientation Name,Place,Situation Attention Span Ability Capable of Focused Attention, Capable of Sustained Attention Ability to Follow Commands Able to Follow One Step Commands Safety Awareness Decreased Ability to Apply Precautions Cognitive Comments Cognitive Assessment Comments Pt still needing cues to incorporate her back precautions for all needs. Pt insisting that someone told her that she had to get a ride to skilled rehab tomorrow. Told pt usually the skilled rehab will come and pick her up. Able to talk to director of casework of pt's impression that she needed to get a ride to skilled rehab. M7 OT- IP Mobility and Balance Start: 11/06/21 17:08 Freq: Status: Active Protocol: Document 11/07/21 13:00 [facility] (Rec: 11/07/21 13:51 [facility] [id number]) OT-Transfer Assessment Sit to and From Stand Sit to and from Stand Minimal Assistance Transfers Transfer Ability Standby Assistance,Contact Guard Assistance Technique Transfer Destination Chair Comments Mobility Comments VERA to stand with FWW and CGA to walk to the sink and back. Pt much improved today. OT- Balance Assessment Sitting Balance and Reactions Static Sitting Balance Ability Good Dynamic Sitting Balance Ability Good Standing Balance and Reactions Static Standing Balance Ability Fair M8 OT- IP Objective Assessments Start: 11/06/21 17:08 Freq: Status: Active Protocol: Document 11/06/21 17:10 [facility] (Rec: 11/06/21 17:24 [facility] [id number]) OT-Muscle Tone Assessment Muscle Tone WNL Yes M9 OT- IP Assessment and Plan Start: 11/06/21 17:08 Freq: Status: Active Protocol: Document 11/07/21 13:00 [facility] (Rec: 11/07/21 13:51 [facility] [id number]) OT Summary Assessment and Plan Potential Rehabilitation Potential Good Analytic Complexity at Evaluation Low Summary OT Impairments Pain,Strength,Balance, Functional Cognition, Functional Mobility,Grooming, Dressing,Toileting,Bathing, Toilet Transfers,Shower Transfers,Activity Tolerance Progress Towards Goals Progressing Toward Goals Assessment Summary Pt overall much improved for ADl and mobility needs. Pt needing reminders to follow her back precautions for ADL and mobility needs. Pt will highly benefit from skilled rehab to continues to work towards independence of ADL's and mobility needs with incorporation of back precautions. Goals Grooming Goal Independent Dressing Goal Independent Toileting Goal Independent Bathing Goal Independent Toilet Transfer Goal Independent Shower Transfer Goal Independent Patient/Caregiver Education Goal Demonstrate Post-Op Precautions Days to Meet Goals 15 Frequency of Treatment Frequency Of Treatment Once a Day Treatment Plan OT Treatment Plan ADL Training,Functional Cognition Training,Functional Mobility,Patient/Family Education,Discharge Planning Other Treatment Recommendations and Next shower Treatment Focus Discharge Recommendations OT Discharge Recommendations SNF Rehab Transportation Needs at Discharge Wheelchair/Cabulance
--- NOTE | 2021-11-07 13:33 | P.PN_ITS ---
Subjective Subjective Interval history: THIS IS A VERY PLEASANT 86-YEAR-OLD FEMALE WITH THE RECENT LUMBAR SPINE SURGERY. ?PATIENT OF A HISTORY OF DIABETES , URINARY INCONTINENCE, SEVERE OSTEOARTHRITIS. HOSPITALIST TEAM CONSULTED FOR MEDICAL MANAGEMENT. ?TODAY NO SPECIFIC COMPLAINTS TODAY NO INCREASING SHORTNESS OF BREATH NO FEVER OR CHILLS NO OTHER SIGNIFICANT ISSUES OVERNIGHT Exam Vital Signs (past 8 hours): - 11/07/21 07:50 11/07/21 08:55 11/07/21 11:55 Temperature 96.8 F L Pulse Rate 67 77 84 Respiratory Rate 22 22 Blood Pressure 128/56 L 128/56 L 136/56 L Pulse Oximetry 96 96 Oxygen Delivery Method Room Air Oxygen Flow Rate 0 Narrative Exam Narrative: NO ACUTE DISTRESS.? PATIENT IS ALERT ORIENTED X3. VITAL SIGNS STABLE HEAD ATRAUMATIC AND NORMOCEPHALIC NECK : SUPPLE WITHOUT ADENOPATHY NO CAROTID BRUITS.? NO JVD EYE:? EOMI, PERRLA, NORMAL CONJUNCTIVA; NO JAUNDICE CHEST:? REGULAR RATE.? ? NO RUBS.? PMI IS NON DISPLACED. NORMAL S1-S2 PULMONARY:? DECREASED BS OVER THE BASES.? MILD BIBASILAR CRACKLES NOTED; NO INCREASED DULLNESS TO PERCUSSION ABDOMEN:? SOFT.? NONTENDER.? NONDISTENDED.? BOWEL SOUNDS ARE PRESENT IN ALL 4 QUADRANTS.? NO MASS. EXTREMITIES:? TRACE BILATERAL LOWER EXTREMITY EDEMA..? NO CYANOSIS CLUBBING NOTED. NEURO:? CRANIAL NERVES 2-12 GROSSLY INTACT. NO FOCAL NEUROLOGICAL DEFICIT NOTED. MSK:? CLOSE SURGICAL INCISION ALONG THE LOWER BACK.? NO SIGNIFICANT DRAINAGE.? MILD REDNESS APPRECIATED.? MILD PARASPINAL TENDERNESS WITH PALPATION OF THE LOWER BACK SKIN:? NORMAL FOR ETHNICITY; NO ECCHYMOSIS.? NO LESION. ? GOOD? TURGOR.; NO RASHES :? NORMAL EXTERNAL GENITALIA. MICHAEL CATHETER IN PLACE. ? YELLOWISH URINE NOTED PSYCH :? APPROPRIATE MOOD AND AFFECT.? ALERT AWAKE ORIENTED X3 Objective Labs Result Diagrams: 11/07/21 04:52 11/07/21 04:52 Labs: Laboratory Results - last 24 hr 11/06/21 11/06/21 11/06/21 15:19 15:19 15:19 WBC 10.1 RBC 2.96 L Hgb 9.0 L Hct 26.7 L MCV 90.0 MCH 30.4 MCHC 33.8 RDW 14.3 Plt Count 126 L Neut % (Auto) 85.3 H Lymph % (Auto) 6.7 L [place] % (Auto) 7.4 Eos % (Auto) 0.4 L Baso % (Auto) 0.2 Neut # (Auto) 8600 H Lymph # (Auto) 700 L [place] # (Auto) 800 Eos # (Auto) 0 Baso # (Auto) 0 Sodium 133 L Potassium 4.3 Chloride 102 Carbon Dioxide 23 BUN 22 H Creatinine 1.51 H Estimated GFR 33 L BUN/Creatinine Ratio 14.6 Glucose 280 H Hemoglobin A1c 7.1 H Calcium 8.9 Phosphorus 3.0 Magnesium Total Bilirubin 0.8 AST 32 ALT 18 Alkaline Phosphatase 47 Total Protein 6.8 Albumin 3.6 Globulin 3.2 Albumin/Globulin Ratio 1.1 11/07/21 11/07/21 04:52 04:52 WBC 8.9 RBC 3.20 L Hgb 9.5 L Hct 28.8 L MCV 89.9 MCH 29.5 MCHC 32.9 RDW 14.5 Plt Count 136 L Neut % (Auto) 85.6 H Lymph % (Auto) 6.9 L [place] % (Auto) 7.3 Eos % (Auto) 0.0 L Baso % (Auto) 0.2 Neut # (Auto) 7600 H Lymph # (Auto) 600 L [place] # (Auto) 600 Eos # (Auto) 0 Baso # (Auto) 0 Sodium 136 L Potassium 4.2 Chloride 104 Carbon Dioxide 22 BUN 27 H Creatinine 1.46 H Estimated GFR 35 L BUN/Creatinine Ratio 18.5 Glucose 257 H Hemoglobin A1c Calcium 9.5 Phosphorus 3.1 Magnesium 2.4 H Total Bilirubin 0.7 AST 29 ALT 19 Alkaline Phosphatase 54 Total Protein 7.4 Albumin 3.9 Globulin 3.5 Albumin/Globulin Ratio 1.1 [facility] Medical History (Updated 11/06/21 @ 08:18 by Mary White PA-C) Anxiety Aortic valve regurgitation Breast cancer (1995) CAD (coronary artery disease) Carotid artery disease CKD (chronic kidney disease) COPD (chronic obstructive pulmonary disease) Diabetes Diverticular disease HLD (hyperlipidemia) HTN (hypertension) Osteoarthritis Osteoarthropathy Urinary incontinence in female Surgical History (Updated 11/06/21 @ 08:16 by Mary White PA-C) History of hysterectomy History of surgery Hx of bilateral cataract extraction Hx of breast surgery (1995) Hx of elbow surgery Hx of lumpectomy Hx of repair of right rotator cuff Hx of tonsillectomy Social History household members: none Smoking Status: Never smoker alcohol intake: never Assessment & Plan Assessment & Plan narrative: IMPRESSION TYPE 2 DIABETES.? NON-INSULIN DEPENDENT.? A1C NOTED FROM PREVIOUS LAB WAS JUST SLIGHTLY ABOVE 7 STATUS POST L3-L4, L4-L5 TLIF POSTERIOR INSTRUMENTATION.? ORTHOPEDIC SURGERY ON BOARD CAD PER HISTORY HYPERTENSION PER HISTORY HYPERLIPIDEMIA PER HISTORY POSSIBLE CHRONIC KIDNEY DISEASE PER HISTORY COPD PER HISTORY ?URINARY INCONTINENCE PER HISTORY.? MICHAEL CATHETER IN PLACE PLAN BLOOD SUGAR NOTED TO BE SLIGHTLY HIGHER TODAY THIS IS LIKELY RELATED TO STEROIDS ADDED FOR PAIN CONTROL WILL DISCONTINUE STEROIDS TODAY THIS WILL MOST LIKELY IMPROVE BLOOD SUGAR LEVEL. CONTINUE SLIDING SCALE INSULIN PER HOSPITAL PROTOCOL ALSO CONTINUE ORAL DIABETIC MEDICATIONS WELL STRICT DIABETIC DIET PATIENT APPEARED TO BE CLINICALLY STABLE AT THIS TIME. SHE IS CLEARED FOR DISCHARGE IN MEDICINE TEAM STANDPOINT WILL SIGN OFF WE APPRECIATED THE OPPORTUNITY TO PARTICIPATE IN THIS PATIENT CARE PLEASE CALL THE HOSPITALIST SERVICE WITH ANY QUESTIONS IF NEEDED 11/06 ?BLOOD SUGAR REMAINS SLIGHTLY ABOVE 200 ?WHICH IS FAIRLY ADEQUATE FOR A ? HOSPITALIZED PATIENT ?SLIDING-SCALE IS ON BOARD ?PATIENT IS ON? GLIPIZIDE WELL ? TRADJENTA ?WILL ADD OTHER AGENT IF INDICATED CLINICALLY ?PATIENT ALSO CONTINUED TO HAVE SIGNIFICANT PAIN EXPECTED ?WILL HOWEVER TRY AND AVOID OPIOIDS IF POSSIBLE ?PATIENT WILL BE STARTED ON DEXAMETHASONE ?GABAPENTIN WILL BE ADDED TODAY WELL ?ROBAXIN ORDERED TO START THIS AFTERNOON. THIS COULD HELP AND DECREASE THE? USE OF OPIOIDS TO CONTROL HER PAIN. DUE TO HER AGE OPIOIDS AND BENZOS ARE NOT RECOMMENDED? IF POSSIBLE. ? AWARE OF THE POSSIBLE IMPACT OF STEROIDS ON THE BLOOD SUGAR ?WILL MONITOR CLOSELY. ? PATIENT TO CONTINUE WORK WITH PHYSICAL / OCCUPATIONAL? THERAPY TEAMS PREVIOUSLY PLANNED MAINTAIN STRICT FALL PRECAUTIONS ?NURSING TO PROVIDE ASSISTANCE WITH ALL ACTIVITIES ?PATIENT TO BE OUT OF BED ONLY WITH NURSING ASSISTANCE ?ADDITIONAL MANAGEMENT PER CLINICAL COURSE ?WILL CONTINUE TO FOLLOW WITH YOU. 11/05 WILL CHECK LABS IN THE MORNING THIS WILL INCLUDE A CMP, CBC, MAGNESIUM OR PHOSPHORUS LEVEL WILL ALSO ADD A HEMOGLOBIN A1C START ON INSULIN SLIDING SCALES DIABETIC DIET RECOMMENDED MONITOR CLOSELY FOR ANY SIGN OF ACUTE COMPLICATIONS POSTOPERATIVELY 5W'S IN REGARD TO THE REPORTED BLURRY VISION NO WORKUP IS INDICATED AT THIS TIME PATIENT DENIED HAVING ANY SIGNIFICANT ISSUES WITH HER VISION THIS MORNING WILL CONSIDER CT OR MRI IF INDICATED CLINICALLY CONTINUE TO MOBILIZE PATIENT WELL TOLERATED WHILE MAINTAINING STRICT FALL PRECAUTIONS AND FOLLOWING SURGERY TEAM RECOMMENDATIONS IN? REGARD TO WEIGHT-BEARING/RESTRICTION WE GREATLY APPRECIATE THIS KIND CONSULT AND WILL GLADLY FOLLOW WITH YOU Time Spent With Patient Critical Care time: I spent a total of [] minutes of critical care time on this patient's care today; this time is exclusive of procedural time.
--- NOTE | 2021-11-07 16:03 | PT.IPTN ---
Current Diagnoses Acute posthemorrhagic anemia (11/05/21) Type 2 diabetes mellitus without complications (11/05/21) Dural tear (11/05/21) Other secondary scoliosis, lumbar region (11/05/21) Spinal stenosis, lumbar region with neurogenic claudication (11/05/21) Unspecified urinary incontinence (11/05/21) Arthrodesis status (11/05/21) Surgery Performed Operation Date: 11/04/21 07:45 Actual Procedures p L3-4, L4-5 TLIF w. posterior instrumentation-Robot - Shiela Hawk MD Physical Therapy Treatment Note M2 PT-IP Current Condition Start: 11/06/21 13:41 Freq: NEEDED Status: Active Protocol: Document 11/06/21 11:16 AB (Rec: 11/06/21 13:57 [facility] [id number]) Physical Therapy Current Condition Current Condition Evaluation Date 11/06/21 Treatment Diagnosis s/p L3-4, L4-5 TLIF; difficulties in walking Onset Date 11/04/21 M3 PT-IP Subjective Start: 11/06/21 13:41 Freq: NEEDED Status: Active Protocol: Document 11/07/21 15:40 N[facility] (Rec: 11/07/21 16:55 [facility] [id number]) Subjective Physical Therapy Visit Type Type Treatment Note Visit Start Time 15:40 Visit Stop Time 16:03 Total Visit Minutes 23 Number of TEST RIDER Visits 2 Physical Therapy Visit Comments Patient Comments agreeable to do PT Therapy Pain Assessment Pain When Pain Assessed After Treatment Pain Present Pain Present Pain Reported Location back Pain Behaviors Facial Grimacing,Guarding, Wincing Pain Management Techniques Distraction,Re-positioning M4 PT-IP Mobility and Gait Start: 11/06/21 13:41 Freq: NEEDED Status: Active Protocol: Document 11/07/21 15:40 [facility] (Rec: 11/07/21 16:55 [facility] [id number]) PT-Bed Mobility Assessment Rolling Type of Rolling Log Rolling Level of Assist Maximal Assistance,1 Person Assistance Sit to Supine Sit to Supine Maximum Assistance,1 Person Assistance PT-Transfer Assessment Sit to and From Stand Sit to and from Stand Contact Guard Assistance,Use of Upper Extremities Equipment Transfer Assistive Device Gait Belt,Front Wheeled Walker Orthotic/Prosthetic Devices or Brace: No Transfers Transfer Destination Bed Transfer Technique Pt ambulated w/ FWW Transfer Ability Level of Assist Moderate Assistance,1 Person Assistance,Use of Upper Extremities Comments Mobility Comments Pt sitting in chair upon arrival and agreeable to ambulate. Precautions reviewed. BP seated: 125/61, standing after three min: 138/74. SBA scooting EOB. SBA w/ vc for hand placement with sit<>stand w/ FWW. Pt reported dizziness upon standing, BP stable. Mod A for standing tolerance w/ FWW ~ 3 min due to dizziness upon standing and BP rechceck. Pt ambulated w/ FWW ~40 ft with Mod A for FWW management, posture and step length. Mod A stand<>sit EOB and Max A for logrolling into bed. Pt left in bed with alarm, HOB elevated and all needs within reach. Gait Assessment Gait Gait Assistance Required: Minimum Assistance,Moderate Assistance,1 Person Assist Distance (Feet) 40 Able to Maintain Weight Bearing Status Yes During Gait Assistive Devices Assistive Device Gait Belt,Front Wheeled Walker Orthotic/Prosthetic Devices or Brace: No Factors Limiting Gait Function Factors Limiting Gait Function Decreased Activity Tolerance, Decreased Strength,Limited Range of Motion,Pain,Poor Balance,Poor Safety Awareness Comments Gait Comments Step-to gait w/ FWW. Please refer to mobility section for further gait details. PT-Balance Assessment Sitting Balance and Reactions Static Sitting Balance Ability Good Dynamic Sitting Balance Ability Good Standing Balance and Reactions Static Standing Balance Ability Fair Dynamic Standing Balance Ability Fair Device Used FWW M5 PT-IP Objective Assessments Start: 11/06/21 13:41 Freq: NEEDED Status: Active Protocol: Document 11/06/21 11:16 AB (Rec: 11/06/21 13:57 AB [id number]) Orientation Orientation/Cognition Level of Alertness Alert Orientation Name,Place,Situation Language Function Ability No Deficits Noted Safety Awareness Decreased Safety Awareness Memory Description Short Term Impaired Gross Range of Motion Lower Extremity ROM Assessment Within Functional Limits Strength Lower Extremity Strength Assessment Bilaterally Impaired Comments Strength Comments LLE: 3+/5 RLE: 3/5 Muscle Tone Muscle Tone WNL Yes M6 PT-IP Treatment Start: 11/06/21 13:41 Freq: NEEDED Status: Active Protocol: Document 11/07/21 15:40 NBM (Rec: 11/07/21 16:55 [facility] [id number]) Physical Therapy Treatment Education Education Provided Precautions,Safety M7 PT-IP Assessment and Plan Start: 11/06/21 13:41 Freq: NEEDED Status: Active Protocol: Document 11/07/21 15:40 [facility] (Rec: 11/07/21 16:55 [facility] [id number]) PT Summary Assessment and Plan Potential Rehabilitation Potential Fair Status of Condition at Evaluation Evolving Summary Impairments Pain,ROM,Strength,Balance, Coordination,Sensation,Tone, Cognition,Bed Mobility, Transfers,Gait,Activity Tolerance Progress Towards Goals Slow Progress due to Pain,Slow Progress due to Activity Tolerance Assessment Summary Pt unable to recall all precautions. Pt requires up to Max A for bed mobility but demonstrates improved ability to perform sit<>stand. She improved her ambulation distance by 10 ft with FWW but continues to require Mod A for FWW management, posture and increased step length. Pt will require SNF to improve functional mobility independence and strength. Goals Bed Mobility Goal Minimal Assistance Transfer Goal Minimal Assistance,Front Wheeled Walker Gait Goal Minimal Assistance,Front Wheel Walker Gait Distance 50 Other Goals improve bed mobility, transfers using FWW CGA and ambulation using fWW CGA 100 ft Days to Meet Goals 10 Frequency of Treatment Frequency Of Treatment Twice a Day Treatment Plan Physical Therapy Treatment Plan Bed Mobility Training,Transfer Training,Gait Training, Therapeutic Exercise,Balance Retraining,Post Op Education, Discharge Planning,Hot or Cold Pack,Neuromuscular Re-ed, Coordination Retraining,Manual Therapy Precautions Lumbar Precautions Log Roll,No Twisting,Limit Bending,Lifting Restriction of 10 lbs,Gait Belt above Incisional Area Discharge Recommendations PT Discharge Recommendations SNF Rehab Transportation Needs at Discharge Wheelchair/Cabulance
[2021-11-07] MEDS: ACETAMINOPHEN 325 MG TABLET 650 MG PO (16:05)
[2021-11-07] MEDS: ATORVASTATIN 20 MG TABLET 80 MG PO (21:26)
[2021-11-07] MEDS: SENNOSIDES 8.6 MG TABLET 17.2 MG PO (21:26)
[2021-11-08 05:45] VITALS: BP 140/61; PULSE 59; RESP 16; TEMP 35.7; O2SAT 97
[2021-11-08] MEDS: LEVOTHYROXINE 25 MCG TABLET PO (06:34)
[2021-11-08] MEDS: ACETAMINOPHEN 325 MG TABLET 650 MG PO ×2 (06:34→12:28)
[2021-11-08] MEDS: PANTOPRAZOLE DR 20 MG TABLET PO (06:34)
[2021-11-08 07:35] VITALS: BP 128/44; PULSE 58; RESP 18; TEMP 36.1; O2SAT 97
[2021-11-08] MEDS: INSULIN LISPRO 100 UNIT/ML 3ML VIAL SUBCUT ×2 (08:26→12:44)
[2021-11-08] MEDS: DOCUSATE 100 MG CAPSULE PO (08:29)
[2021-11-08] MEDS: CHOLECALCIFEROL (VITAMIN D3) 1,000 UNIT TABLET 2000 UNIT PO (08:29)
[2021-11-08] MEDS: FENOFIBRATE, MICRONIZED 67 MG CAPSULE PO (08:29)
[2021-11-08] MEDS: FOLIC ACID 1 MG TABLET 0.5 MG PO (08:29)
[2021-11-08 08:30] VITALS: BP 128/44; PULSE 64
[2021-11-08] MEDS: lisinopriL 10 MG TABLET PO (08:30)
[2021-11-08] MEDS: GABAPENTIN 100 MG CAPSULE PO (08:30)
[2021-11-08] MEDS: methocarbamoL 500 MG TABLET PO (08:30)
[2021-11-08] MEDS: glipiZIDE 5 MG TABLET 10 MG PO (08:30)
[2021-11-08] MEDS: MAGNESIUM HYDROXIDE 30 ML UDC PO (08:34)
--- NOTE | 2021-11-08 09:20 | CM.DPC ---
Addendum entered by Ellie Workman R.N. 11/08/21 12:16: There was concern about patient's blood pressures and having BM. MEHRDAD Caldwell, will complete order, for patient is not being picked up until 1330. Faxed [facility] orders, PASSR, DC Summary, vaccination information. White board updated, gave nurse, Abhi, main phone number at facility for report. Original Note: DCP Cont: Had originally left Candace at [facility] a message regarding if she had received an auth on patient's [employer]. Candace called back and left a message, she did receive the auth yesterday, and can excelsior picker patient at 1330. Updated Paulette Peterson, PAC ortho, and nurse, Joshua. Updated white board at main nurses station. Left a message with Candace that patient will be discharged and picked up by them at 1330. If patient does not discharge today, they would not be able to take her until Thursday. P: Patient should discharge today, and will go to [facility]. Will fax over orders, PASSR, and DC Summary when completed. Ellie Workman RN/[employer]
[2021-11-08] MEDS: OXYCODONE IR 5 MG TABLET PO (09:41)
[2021-11-08] MEDS: TRAMADOL 50 MG TABLET PO (09:41)
--- NOTE | 2021-11-08 10:40 | OT.IP.TRT ---
Current Diagnoses Acute posthemorrhagic anemia (11/05/21) Type 2 diabetes mellitus without complications (11/05/21) Dural tear (11/05/21) Other secondary scoliosis, lumbar region (11/05/21) Spinal stenosis, lumbar region with neurogenic claudication (11/05/21) Unspecified urinary incontinence (11/05/21) Arthrodesis status (11/05/21) Surgery Performed Operation Date: 11/04/21 07:45 Actual Procedures p L3-4, L4-5 TLIF w. posterior instrumentation-Robot - Shiela Hawk MD Occupational Therapy Treatment Note M2 OT-IP Current Condition Start: 11/06/21 17:08 Freq: Status: Active Protocol: Document 11/06/21 17:10 [facility] (Rec: 11/06/21 17:24 [facility] [id number]) Occupational Therapy Current Condition Current Condition Evaluation Date 11/06/21 Treatment Diagnosis s/p L3-4, L4-5 TLIF with small dural tear, mobility . Diagnosis Onset Date 11/04/21 Post Operative Precautions Lumbar Precautions Log Roll,No Twisting,Limit Bending,Lifting Restriction of 10 lbs,Gait Belt above Incisional Area M3 OT- IP Subjective and Pain Start: 11/06/21 17:08 Freq: Status: Active Protocol: Document 11/08/21 10:40 [facility] (Rec: 11/08/21 14:02 [facility] [id number]) OT- Subjective Occupational Therapy Visit Type Type Treatment Note Visit Start Time 10:40 Visit Stop Time 11:26 Total Visit Minutes 46 Occupational Therapy Visit Comments Patient Comments Pt wanting to try to use the bathroom. Patient/Caregiver Goals To go to skilled rehab. OT Pain Assessment Pain When Pain Assessed At Rest Pain Present Pain Present Pain Reported Location back Intensity 10 Scale Used Numeric (0 - 10) M4 OT- IP ADL's Start: 11/06/21 17:08 Freq: Status: Active Protocol: Document 11/08/21 10:40 [facility] (Rec: 11/08/21 14:02 [facility] [id number]) OT GVQ-Clia-Zceovxo Comments OT Self-Feeding Comments Not at meal time. OT ADL-Grooming Comments OT Grooming Comments NOt performed. OT ADL-Oral Care Comments Oral Care Comments Not performed. OT ADL-Dressing Comments OT Dressing Comments Not performed. OT ADL-Toileting Comments OT Toileting Comments Pt trying to use the BSC and unsuccessful. Nursing aware and to give pt a suppository soon . OT ADL-Bathing Comments OT Bathing Comments Pt in too much pain to attempt at this time. M5 OT- IP IADL's Start: 11/06/21 17:08 Freq: Status: Active Protocol: Document 11/06/21 17:10 [facility] (Rec: 11/06/21 17:24 [facility] [id number]) OT-Instrumental Activities of Daily Living Home Safety Awareness Home Safety Comments Pt too groggy at this time and would be best to have someone assist her for all her needs. M6 OT- IP Functional Cognition Start: 11/06/21 17:08 Freq: Status: Active Protocol: Document 11/08/21 10:40 [facility] (Rec: 11/08/21 14:02 [facility] [id number]) Cognitive Factors Limiting Selfcare Function Cognitive Ability Level of Alertness Alert Patient Orientation Name,Place,Situation Attention Span Ability Capable of Focused Attention, Capable of Sustained Attention Ability to Follow Commands Able to Follow One Step Commands Safety Awareness Decreased Ability to Apply Precautions Cognitive Comments Cognitive Assessment Comments Pt able to states her back precautions and follow commands today better. M7 OT- IP Mobility and Balance Start: 11/06/21 17:08 Freq: Status: Active Protocol: Document 11/08/21 10:40 [facility] (Rec: 11/08/21 14:02 [facility] [id number]) OT- Bed Mobility Assessment Supine to Sit Supine to Sit Assist Maximum Assistance,1 Person Assistance Sit to Supine Sit to Supine Assist Maximum Assistance,1 Person Assistance OT-Transfer Assessment Sit to and From Stand Sit to and from Stand Moderate Assistance,Maximum Assistance Transfers Transfer Ability Minimal Assistance,Moderate Assistance Technique Transfer Destination Bed,Bedside Commode Comments Mobility Comments Log roll to the right as her set up at home. MAX XA 1 and MOD/MAXA X 1 to stand today. Pt needing more help today as unsteady and in pain. OT- Balance Assessment Sitting Balance and Reactions Static Sitting Balance Ability Good Dynamic Sitting Balance Ability Fair Standing Balance and Reactions Static Standing Balance Ability Poor M8 OT- IP Objective Assessments Start: 11/06/21 17:08 Freq: Status: Active Protocol: Document 11/06/21 17:10 [facility] (Rec: 11/06/21 17:24 [facility] [id number]) OT-Muscle Tone Assessment Muscle Tone WNL Yes M9 OT- IP Assessment and Plan Start: 11/06/21 17:08 Freq: Status: Active Protocol: Document 11/08/21 10:40 [facility] (Rec: 11/08/21 14:02 [facility] [id number]) OT Summary Assessment and Plan Potential Rehabilitation Potential Good Analytic Complexity at Evaluation Low Summary OT Impairments Pain,Strength,Balance, Functional Cognition, Functional Mobility,Grooming, Dressing,Toileting,Bathing, Toilet Transfers,Shower Transfers,Activity Tolerance Progress Towards Goals Slow Progress due to Pain Assessment Summary Pt having much more pain today and needing more assist for ADL and mobility needs and will benefit from skilled rehab. Goals Grooming Goal Independent Dressing Goal Independent Toileting Goal Independent Bathing Goal Independent Toilet Transfer Goal Independent Shower Transfer Goal Independent Patient/Caregiver Education Goal Demonstrate Post-Op Precautions Days to Meet Goals 15 Frequency of Treatment Frequency Of Treatment Once a Day Treatment Plan OT Treatment Plan ADL Training,Functional Cognition Training,Functional Mobility,Patient/Family Education,Discharge Planning Discharge Recommendations OT Discharge Recommendations SNF Rehab Transportation Needs at Discharge Wheelchair/Cabulance
[2021-11-08] MEDS: HYDROMORPHONE 0.5 MG INJ 0.2 MG IV (11:17)
[2021-11-08] MEDS: BISACODYL 10 MG SUPP PR (11:18)
--- NOTE | 2021-11-08 11:25 | P.DS_ITS ---
History of Present Illness History of Present Illness Date Patient Seen: 11/08/21 Time Patient Seen: 11:26 Chief complaint: Low back pain s/p TLIF Narrative: Patient is complaining of moderate to severe low back pain this morning. She is also complaining of new right-sided lower extremity pain. She was up and walking a lot with physical therapy. She seems to have baseline deconditioning with inactivity. She notes she is also constipated, she has not tried a rectal suppository yet. She apparently takes a medication called Linzess at home but does not have it available in the hospital. She denies any new numbness or tingling. She is working with occupational therapy and the plan is to discharge to [facility] today. Discharge Providers Provider Date of admission: 11/05/21 11:12 Discharge Date: 11/08/21 Primary care physician: Donna Garnica MD Consults: 10/30/21 08:08 Consult to Anesthesiology Routine Comment: Consulting Provider: Anesthesiologist Reason for consultation: PAC Courtesy re:Comorbidities 11/04/21 15:10 Consult to Occupational Therapy Evaluate & Treat Comment: Physician Instructions: Evaluate and treat Consult to Physical Therapy Evaluate & Treat Comment: Physician Instructions: Evaluate and Treat 11/05/21 12:15 Consult to Hospitalist Service Routine Comment: Consulting Provider: Tali Jean Reason for consultation: s/p TLIF, h/o DM, COPD Has provider been notified: Yes Discharge provider: Paulette Peterson PA-C Summary Hospital Course Discharge Diagnosis: 1. Lumbar scoliosis 2. Lumbar spinal stenosis with neurogenic claudication Hospital Course: Operative Date/Time/Diagnoses Date of procedure: 11/04/21 Time of procedure: 07:45 Procedure & Clinicians Procedure: 1. L3-4, L4-5 Postero-lateral and posterior interbody fusion 2.? L3-4, L4-5 interbody cage placement. 3.? L3-4, L4-5 decompressive laminectomy with bilateral facetecomies 4.? L3-4, L4-5 Posterior segmental instrumentation 5. Rifle of bone marrow from iliac crest 6. Utilization of microsurgical technique and operating microscope 7. Utilization of robotic assisted navigation Same procedure as scheduled: Yes Indications: Patient has been having chronic back pain and worsening lumbar radiculopathy and symptoms of neurogenic claudication. Patient failed multiple conservative management with worsening pain weakness and numbness in her lower extremity.? Patient has been having difficulty performing activity of daily living.? After discussing risks benefits of treatment options, patient elected proceed with surgery. Surgeon: Shiela Hawk Electric [employer] Machine Operator: Mary White Click Yes if Unassisted: No Anesthesia Type: General Operative Notes Closure Type: primary Specimen(s): none sent Prosthetic devices, grafts, tissues, transplants, or devices: Globus CREO MIS screws, Rise cages Applied: catheter Estimated Blood Loss (mL): 75 Blood products transfused: none Status at Discharge Cognitive/behavioral status at discharge: oriented Functional status at discharge: uses cane/walker Overall status at discharge: patient is progressing back to baseline Exam Vital Signs (past 8 hours): - 11/08/21 05:45 11/08/21 07:35 11/08/21 08:30 Temperature 96.3 F L 96.9 F L Pulse Rate 59 L 58 L 64 Respiratory Rate 16 18 Blood Pressure 140/61 128/44 L 128/44 L Pulse Oximetry 97 97 Oxygen Delivery Method Room Air Oxygen Flow Rate 0 Narrative Exam Narrative: 86-year-old female, on the commode with occupational therapy. Mild distress. She is able to get up and slowly ambulate with her walker in physical therapy. Objective Labs Result Diagrams: 11/07/21 04:52 11/07/21 04:52 [facility] Medical History Anxiety Aortic valve regurgitation Breast cancer (1995) CAD (coronary artery disease) Carotid artery disease CKD (chronic kidney disease) COPD (chronic obstructive pulmonary disease) Diabetes Diverticular disease HLD (hyperlipidemia) HTN (hypertension) Osteoarthritis Osteoarthropathy Urinary incontinence in female Surgical History History of hysterectomy History of surgery Hx of bilateral cataract extraction Hx of breast surgery (1995) Hx of elbow surgery Hx of lumpectomy Hx of repair of right rotator cuff Hx of tonsillectomy Social History household members: none Smoking Status: Never smoker alcohol intake: never Discharge Assessment & Plan Assessment and Plan Assessment: Stable status post lumbar TLIF -marginal pain control -constipation Plan of Treatment: (1) Status post lumbar spinal fusion: ? ? ? Assessment and Plan narrative: Continue to mobilize w/ PT.? Per CM note, plan is for d/c to [facility] today.? Limit bending, lifting, twisting x6 weeks. -increased pain medications to oxy 5-10 mg every 4 hours as needed for moderate to severe pain, tramadol and Tylenol for low to moderate pain. (2) Dural tear: ? ? ? Assessment and Plan narrative: Repaired at time of surgery; no evidence of further CSF leak. (3) Acute postoperative anemia due to expected blood loss: ? ? ? Assessment and Plan narrative: Asymptomatic; no intervention needed at this time. (4) Urinary incontinence in female: ? ? ? Assessment and Plan narrative: Will continue catheter at pts request; remove or change by POD# 7. (5) Diabetes: ? ? ? Assessment and Plan narrative: Steroids/blood glucose control per hospitalist service - appreciate the help with this patient. (6) constipation: ? ? Assessment and Plan narrative: Patient takes Linzess at baseline, this is unavailable hospital. We will try rectal suppository. I really feel that a bowel movement would significantly help her pain and overall demeanor. Discharge Plan Discharge Plan Patient Disposition: SNF Transfer to: [facility] Discharge orders & Medications Prescriptions: New gabapentin 100 mg Capsule 100 mg PO TID Qty: 90 0RF oxycodone 5 mg Tablet See Rx Instructions .ROUTE .COMPLEX PRN (Reason: Pain, severe) Qty: 42 0RF Rx Instructions: Take 1-2 tablets by mouth every 4 hours as needed for moderate to severe postop pain bisacodyl 10 mg Suppository 10 mg MA PRN PRN (Reason: Constipation) Qty: 12 0RF docusate sodium 100 mg Capsule 100 mg PO BID PRN (Reason: constipation) Qty: 60 0RF sennosides [senna] 8.6 mg Tablet 17.2 mg PO BEDTIME PRN (Reason: constipation) Qty: 30 0RF insulin lispro [Humalog U-100 Insulin] 100 unit/mL Solution See Rx Instructions .ROUTE .COMPLEX Qty: 10 0RF Rx Instructions: Per sliding scale protocol, okay to taper to oral medications once glucose is better controlled Continued glipizide 10 mg Tablet 10 mg PO BID 0RF fenofibrate micronized 67 mg Capsule 67 mg PO DAILY 0RF levothyroxine 25 mcg Tablet 25 mcg PO DAILY 0RF lisinopril 10 mg Tablet 10 mg PO DAILY 0RF omeprazole [Prilosec] 20 mg Capsule,Delayed Release(Dr/Ec) 20 mg PO DAILY 0RF cyclosporine [Restasis] 0.05 % Dropperette 1 drp OPHTHALMIC (EYE) BID 0RF rosuvastatin 40 mg Tablet 40 mg PO BEDTIME 0RF Tradjenta 5 mg Tablet 5 mg PO QAM 0RF acetaminophen 325 mg Tablet 650 mg PO Q6H PRN (Reason: Pain) 0RF aspirin 325 mg Tablet 325 mg PO DAILY 0RF folic acid 0.8 mg Capsule 0.5 mg PO DAILY 0RF fluticasone furoate 27.5 mcg/actuation [place],Suspension 2 spray INTRANASAL DAILY 0RF Rx Instructions: into each nostril cholecalciferol (vitamin D3) [Vitamin D3] 50 mcg (2,000 unit) Capsule 50 mcg PO DAILY 0RF Changed tramadol 50 mg Tablet 50 mg PO Q4-6H PRN (Reason: breakthrough pain) Qty: 42 0RF Follow up/Referrals: Shiela Hawk MD [Physician] - As previously scheduled (Follow up w/ Dr Hawk on 11/14/2021 @ 2:00 pm at [facility] office in [place]) Donna Garnica MD [Primary Care Provider] - Diet/Activity/Treatments Diet: Carb-consistent/Diabetic Food texture: Regular Activity: Ambulate as frequently as possible with walker. No deep bending (>90 degrees) or twisting at waist. No lifting > 10 pounds. Catheter: 2-way Solomon Catheter comment: D/c or change on 11/11/21 Skin/Wound/Dressing Care Report to your healthcare provider any signs of infection, such as:: chills, fever, night sweats, unusual drainage and unusual redness Dressing: May shower; keep dressing as dry as possible. May change dressing if it becomes saturated inside; place clean, dry gauze and non-occlusive tape. No bathing or otherwise soaking incisions. No creams, lotions, or ointments to incisions. Other wound treatment: Call the office if there is clear fluid leaking from incisions. [facility] Rehab type: Physical therapy and Occupational therapy Visit Report/Discharge Packet Instructions: DI for Prescription Opioid Use, DI for Transforaminal Lumbar Interbody Fusion Stand Alone Forms: Surgery Discharge Discharge Data Primary Care Provider: Donna Garnica
[2021-11-08 11:30] VITALS: BP 110/37; PULSE 58; RESP 18; TEMP 36; O2SAT 99
--- NOTE | 2021-11-08 11:53 | PT-IP ANOTE ---
Attempted to see pt at 11:53 AM, pt had suppository in place and therefore unable to participate.
[2021-11-08] MEDS: OXYCODONE IR 5 MG TABLET 10 MG PO (12:28)
[2021-11-08 12:40] LABS: COVID19 -Nasal RAPID Negative (Negative)
[2021-11-08 13:18] VITALS: BP 114/44
== END 2021-11-08 13:40 | DRG 454 ==
LOC: OR 11:55 → AC 11:55
PROVIDERS: Hospitalist; Physician Assistant; Admitting Provider Orthopaedic Surgery Orthopaedic Surgery of the Spine; PCP Family Medicine; Referring Provider Orthopaedic Surgery Orthopaedic Surgery of the Spine; Visit Provider Orthopaedic Surgery Orthopaedic Surgery of the Spine
PROC: 0SG10AJ Fusion of 2 or more Lumbar Vertebral Joints with Interbody Fusion Device, Posterior Approach, Anterior Column, Open Approach (ICD-10-PCS; principal; 2021-11-04 07:45)
DX: M48.062 Spinal stenosis, lumbar region with neurogenic claudication (principal); G97.41 Accidental puncture or laceration of dura during a procedure; D62 Acute posthemorrhagic anemia; M47.26 Other spondylosis with radiculopathy, lumbar region; M41.9 Scoliosis, unspecified; R32 Unspecified urinary incontinence; E11.65 Type 2 diabetes mellitus with hyperglycemia; K59.00 Constipation, unspecified; E78.5 Hyperlipidemia, unspecified; E11.22 Type 2 diabetes mellitus with diabetic chronic kidney disease; I12.9 Hypertensive chronic kidney disease with stage 1 through stage 4 chronic kidney disease, or unspecified chronic kidney disease; N18.30 Chronic kidney disease, stage 3 unspecified; Z79.84 Long term (current) use of oral hypoglycemic drugs; Z20.822 Contact with and (suspected) exposure to COVID-19
CPT/HCPCS: 36415; 72100; 76000; 80053; 82962; 83036; 83735; 84100; 85014; 85018; 85025; 87635; 97116; 97162; 97165; 97530; 97535; C9803; C1713; C9290; J0131; J0171; J0330; J1100; J1170; J1815; J2704; J3010